=== PATIENT | female | born 1940 | race Caucasian/White ===

== ENCOUNTER 2019-04-24 02:27 | Day surgery (SDC) | payer MEDICARE, SELFPAY ==
[2019-04-23 11:27] VITALS: BMI 36.3
[2019-04-24 07:50] VITALS: BP 136/71; PULSE 44; RESP 14; TEMP 36.6; O2SAT 98
--- NOTE | 2019-04-24 09:06 | WPDCARDPROC ---
Cardiac Cath Procedure Note Date of procedure:: 04/24/19 Performing physician:: Johnathan Eaton MD Indication:: Symptoms of intermittent lightheadedness sensation of presyncope Brief clinical history:: This is a 78-year-old patient who has been seen by my partner Dr. Barnes and has been experiencing symptoms of lightheadedness and the desire is to rule out significant Javier arrhythmias Procedure Procedure performed:: Implantation of Medtronic LINQ loop recorder Sedation/Medication given:: No sedation Access site:: Left anterior chest wall Estimated blood loss:: Minimal Procedure note:: Patient was placed in the supine position the left anterior chest wall was palpated the 4th intercostal space was identified in the midclavicular line. Estiven was made there with a sterile pen and then the area was prepped and draped in a sterile fashion. 20 cc of 1% lidocaine was infiltrated in this region locally and following this the LINQ device was implanted using the supplied blade and insertion tool. The insertion puncture site will be dressed with Dermabond and a Band-Aid. Findings:: Unremarkable insertion of a Medtronic LINQ loop recorder Conclusion:: As above unremarkable insertion of Medtronic LINQ loop recorder
--- NOTE | 2019-04-24 09:10 | SUR.OPER ---
0859 Dr. Eaton at bedside placing loop implant-0.18 reading for implant.
== END 2019-04-24 09:29 | disposition home or self-care (01) ==
PROVIDERS: PCP Internal Medicine; Visit Provider Specialist
PROC: (CPT 33285; principal; 2019-04-24 08:30)
DX: R42 Dizziness and giddiness (principal); R94.31 Abnormal electrocardiogram [ECG] [EKG]; I10 Essential (primary) hypertension; E11.9 Type 2 diabetes mellitus without complications; G47.30 Sleep apnea, unspecified; Z86.711 Personal history of pulmonary embolism; Z87.891 Personal history of nicotine dependence; Z79.82 Long term (current) use of aspirin; Z79.84 Long term (current) use of oral hypoglycemic drugs
CPT/HCPCS: 33285; C1764

== ENCOUNTER 2019-08-11 00:16 | Outpatient (CLI) | payer MEDICARE, SELFPAY ==
[2019-08-11 18:58] LABS: SARS-CoV-2 RNA PCR Negative
== END 2019-08-11 00:17 | disposition home or self-care (01) ==
LOC: ANHCOVIDDT 00:16
PROVIDERS: Internal Medicine Cardiovascular Disease; PCP Internal Medicine; Visit Provider Otolaryngology
DX: Z01.818 Encounter for other preprocedural examination (principal); Z11.59 Encounter for screening for other viral diseases
CPT/HCPCS: 87635; C9803; U0003

== ENCOUNTER 2019-08-13 05:34 | Day surgery (SDC) | payer MEDICARE, SELFPAY ==
[2019-08-12 08:56] VITALS: BMI 38.1
[2019-08-13] VITALS (9 sets, daily range): BP systolic 114–150; BP diastolic 59–87; PULSE 57–75; RESP 14–16; TEMP 36.5–36.6; O2SAT 91–97; BMI 38.1
--- NOTE | 2019-08-13 08:20 | SUR.PREOP ---
ARRIVES AMBULATORY TO [facility] 5 FROM OP SURGERY REGISTRATION FOR SCHEDULED C W/ DR. ANSARI. DENIES CP OR SOB ON ARRIVAL. BRISK, STEADY GAIT. ORIENTED TO ROOM, PLAN OF CARE, PROCEDURE. QUESTIONS ANSWERED. VOICED UNDERSTANDING. VS OBTAINED, IV STARTED, LABS SENT, CONSENT SIGNED, SKIN PREPPED, AND PULSES MARKED. STATES HAS TAKEN PREDNISONE 50MG PRE MED DOSES ORDERED FOR CONTRAST MEDIA ALLERGY AT 2100 08/11, AND 0315 08/12. HAS BROUGHT FINAL DOSE OF PREDNISONE 50MG AND BENADRYL WITH HER THIS AM TO TAKE. VOICES NO C/O AT THIS TIME. WILL CONTINUE TO MONITOR.
[2019-08-13 08:40] LABS: Basophils Percent Auto 0.3 % (0.2-1.2); Hematocrit 42.9 % (37.0-47.0); Hemoglobin 14.3 g/dL (12.0-15.0); Immature Granulocyte Absolute 0.05 K/mm3 (0.00-0.031); Immature Granulocyte Percent A 0.6 % (0-0.5); Lymphocytes Absolute Auto 0.87 K/mm3 (0.9-3.2); Lymphocytes Percent Auto 11.1 % (18.3-44.2); Mean Corpuscular HGB Conc 33.3 g/dl (32-36); Mean Corpuscular Hemoglobin 32.1 pg (26-34); Mean Corpuscular Volume 96.2 fl (80-100); Mean Platelet Volume 9.9 fl (7.4-10.4); Monocytes Absolute Auto 0.1 K/mm3 (0.1-0.6); Neutrophils Absolute Auto 6.8 K/mm3 (1.3-6.7); Platelet Count Result 215 k/mm3 (150-375); Red Blood Count 4.46 M/mm3 (4.2-5.4); Red Cell Distribution Width 13.7 % (11.5-14.5); White Blood Count 7.8 K/mm3 (4.5-10.0)
[2019-08-13 08:50] LABS: Prothrombin Time 13.3 Seconds (11.1-14.7)
[2019-08-13 08:51] LABS: Blood Urea Nitrogen 27 mg/dL (7-17); Calcium 9.8 mg/dL (8.4-10.2); Carbon Dioxide 21 mmol/L (22-30); Chloride 105 mmol/L (98-107); Estimated CRCL calculation 61 ml/min; Estimated Glomerular Filt Rate > 60; Glucose 199 mg/dL (65-105); Potassium 4.1 mmol/L (3.4-5.0); Sodium 134 mmol/L (137-145)
--- NOTE | 2019-08-13 08:55 | SUR.PREOP ---
TOOK FINAL DOSE OF PREDNISONE 50MG PO W/ DOSE OF BENADRYL BROUGHT FROM HOME AT THIS TIME W/ SIP OF WATER.
--- NOTE | 2019-08-13 09:50 | SUR.PREOP ---
DR. ANSARI HERE TO SEE PT. NOTIFIED OF CONTRAST MEDIA ALLERGY AND THAT PT. HAS BEEN PREMEDICATED WITH PREDNISONE WITH FINAL DOSE OF PREDNISONE AND BENADRYL PO AT 0855.
--- NOTE | 2019-08-13 10:22 | WPDHPUPDATE1 ---
History and Physical Update Update Date/Time: 08/13/19 10:22 History and Physical has been reviewed, including an updated exam of the patient. There are NO changes in the patient's condition. Risks, benefits, and alternatives have been discussed and questions answered. Patient agrees to proceed with procedure.
--- NOTE | 2019-08-13 10:22 | WPDMODSED ---
Moderate Sedation Note-Pt Data Patient Data Allergies Allergy/AdvReac Type Severity Reaction Status Date / Time Penicillins Allergy Unknown Unknown Verified 08/12/19 09:06 rosuvastatin Allergy Unknown Muscle pain Verified 08/12/19 09:06 tetracycline Allergy Unknown Unknown Verified 08/12/19 09:06 Contrast Media Allergy Unknown ITCHING Uncoded 08/13/19 09:17 AND HIVES Home Medications Medication Instructions Recorded Confirmed Type metformin 500 mg tablet 1,000 mg PO BID #360 tablet 02/09/19 08/13/19 Rx aspirin 81 mg tablet,delayed 81 mg PO DAILY 03/11/19 08/13/19 History release cholecalciferol (vitamin D3) 50 2,000 unit PO DAILY 03/11/19 08/13/19 History mcg (2,000 unit) tablet citalopram 10 mg tablet 10 mg PO DAILY 03/11/19 08/13/19 History fluticasone propionate 50 2 spray NASAL PRN 03/11/19 08/13/19 History mcg/actuation nasal spray,suspension omeprazole magnesium 20 mg 20 mg PO DAILY 03/11/19 08/13/19 History tablet,delayed release vit C 250 mg-E 200 unit-zinc 40 1 tablet PO BID 03/11/19 08/13/19 History mg-copper 1 ge-ddnfsz-onnmoj capsule valsartan 320 1 tablet PO DAILY #90 tablet 03/13/19 08/13/19 Rx mg-hydrochlorothiazide 12.5 mg tablet timolol maleate 1 drp OPHTHALMIC (EYE) QAM 04/24/19 08/13/19 History glimepiride 1 mg tablet 1 mg PO QAM #90 tablet 06/16/19 08/13/19 Rx levothyroxine 75 mcg tablet 75 mcg PO DAILY #90 tablet 06/18/19 08/13/19 Rx Current Medications: Active Medications Sodium Chloride (Normal Saline Iv) 500 mls @ 100 mls/hr IV CONT .Q5H JOCY Sedation/Anesthesia: No previous sedation/anesthesia problems (including family history). [facility] Past Medical History Medical History History of basal cell carcinoma (BCC) Family History Family History (Updated 03/07/17 @ 14:34 by DOCTOR UNKNOWN) Father Family history of malignant neoplasm, Onset Age: 82 Family history of blood dyscrasia Sibling Family history of lung cancer, Onset Age: 67 Depression Family history of glaucoma Family history of alcoholism Mother Family history of malignant neoplasm of uterus, Onset Age: 70 Depression Other Cerebrovascular accident Diabetes mellitus Hypertension Social History Social History Smoking status: Current every day smoker Smoking end date: 03/04/88 Alcohol intake: never Gender identity (if verbalized by the patient): Female Mod Sed Physical Exam Physical Exam Pre Procedural Exam: Normal: Appearance, Eyes, Ears, Nose, Neck, Throat, Airway, Lungs, Heart Size, Heart Rate, Heart Rhythm, Neuro Exam, Abdomen, Liver, Kidneys, Spleen, Breasts, Genitalia, Extremities and Skin Hours since solid foods: 8 Hours since liquid intake: 8 Internal Medicine - PN: Obj Da Vital Signs Vital Signs: Vital Signs - 24 hr 08/13/19 08:33 Temperature 36.6 C Pulse Rate 61 Respiratory Rate 14 Blood Pressure 147/87 H Pulse Oximetry 97 Meds/Results Medications: Active Medications Generic Name Dose Route Start Last Admin Trade Name Freq PRN Reason Stop Dose Admin Sodium Chloride 500 mls @ 100 mls/hr 08/13/19 06:05 Normal Saline Iv IV CONT .Q5H JOCY Labs CBC & Chem 7: 08/13/19 08:34 08/13/19 08:34 Labs: Laboratory Results - last 24 hr 08/13/19 08/13/19 08/13/19 08:34 08:34 08:34 WBC 7.8 RBC 4.46 Hgb 14.3 Hct 42.9 MCV 96.2 MCH 32.1 MCHC 33.3 RDW 13.7 Plt Count 215 MPV 9.9 Immature Gran % (Auto) 0.6 H Neut % (Auto) 87.0 H Lymph % (Auto) 11.1 L [place] % (Auto) 1.0 L Eos % (Auto) 0.0 Baso % (Auto) 0.3 Lymph # (Auto) 0.87 L [place] # (Auto) 0.1 Eos # (Auto) 0.0 Baso # (Auto) 0.0 Abs Immat Gran (auto) 0.05 H Absolute Neuts (auto) 6.8 H Absolute Nucleated RBC 0.0 Nucleated RBC % 0.0
--- NOTE | 2019-08-13 10:23 | P.PCNCC_ITS ---
Cardiac Cath Procedure Note Date of procedure:: 08/13/19 Performing physician:: Juan iL MD date of service 08/13/2019 Indication:: abnormal stress test Brief clinical history:: this is a 79-year-old female with past history of diabetes, hypertension, obesity who was having episodes of presyncope. Underwent stress exercise testing with EKG being positive but the echo cardiogram portion negative for ischemia. she was brought into filling station laborer to define coronary anatomy. Procedure Procedure performed:: 1-Moderate sedation that started at 10:25 am and ended at 10:54 am using mg of Versed and mg fentanyl. The registered nurse was naseem Nagy 2-Selective left and right coronary angiogram. 3-Left heart catheterization with measurement of LVEDP and measurement of gradient across aortic valve. 4-Right common femoral arterial angiogram. 5-Deployment of 6 Spanish Angio-Seal. Sedation/Medication given:: Moderate sedation. Access site:: Right common femoral artery. Estimated blood loss:: 10cc Procedure note:: After informed consent patient was brought in to filling station laborer with the was draped and prepped in usual manner. Moderate sedation was given and the right groin was infiltrated using 1% lidocaine. Five Spanish sheath was obtained using micropuncture needle and the modified Seldinger technique. Selective left coronary angiogram was done using JL4 catheter with the tip of the catheter placed in the left main coronary artery. Selective right coronary angiogram was done using JR4 catheter with the tip of the catheter placed to the right coronary artery. After that 5 Spanish pigtail catheter was advanced across the aortic valve into the left ventricle with measurement of LVEDP and measurement of gradient across aortic valve. Right common femoral arterial angiogram was done. Findings:: 1- left coronary artery is a large artery that divides into large LAD, large circumflex arteryAnd a large ramus intermedius. Left main is free of disease. 2- left anterior descending artery is a large artery that runs and wraps around the apex. has diffuse minimal irregularities proximally and the mid segment and at the septal branch there is a focal 30%. in the mid segment gives rise to a medium-sized diagonal branch that looks unremarkable. 3- left circumflex artery is a large artery And codominant with diffuse minimal irregularities. After the OM branch there is a focal stenosis of about 30%. In the mid segment gives ostial large OM1 branch that looks unremarkable. Left PDA is relatively small with no significant stenosis. 4- ramus intermedius is a large artery and has ostial and proximal 20 -30% stenosis and there is diffuse minimal irregularities. 4- right coronary artery is a Large artery and codominant and has minimal calcification in the proximal mid segment and there is diffuse 20-30% stenosis in the mid segment. 5- LVEDP was 10 mm Hg and no gradient across aortic valve. 6- opening arterial pressure was 140/80 and closing pressure was 128/70. 7- right femoral artery angiogram shows no significant disease in the right common femoral artery. Conclusion:: - minimal nonocclusive CAD. - false-positive stress test. Assessment and Plan Additional Plan continue risk factor modification for CAD.
--- NOTE | 2019-08-13 11:07 | SUR.PHASEII ---
START PHASE II RECOVERY. RETURNS TO LABEL REMOVER 5 VIA STRETCHER S/P [facility] W/ DR. ANSARI. TRANSFERRED TO BED WITHOUT DIFFICULTY AND PLACED ON MONITORING EQUIPMENT. FULLY AWAKE AND ALERT. DENIES PAIN OR SOB. IVF'S RUNNING ORDERED. ANGIOSEAL CLOSURE TO R.FA PUNCTURE SITE. SITE SOFT, NONTENDER, NO BLEEDING OR HEMATOMA NOTED. GUAZE AND TEGADERM DRESSING C/D/I TO SITE. R. PEDAL PULSE 2+; COLOR, MOVEMENT AND SENSATION WNL TO R. FOOT. BEDREST X2 HOURS UNTIL 1300. REVIEWED BEDREST ACTIVITY RESTRICTIONS W/ PT. VOICED UNDERSTANDING. VSS. WILL CONTINUE TO MONITOR.
--- NOTE | 2019-08-13 13:10 | SUR.PHASEII ---
2 HOURS BEDREST COMPLETE AT 1300. R. GROIN SITE AND R. PEDAL PULSE WITHOUT CHANGE. SAT BEDSIDE TO DANGLE FEET BEFORE EASILY WALKING TO BATHROOM TO VOID. STEADY GAIT. RETURNED TO RECLINER CHAIR AT BEDSIDE. R. GROIN SITE REMAINS SOFT, NONTENDER, NO BLEEDING OR HEMATOMA; DRESSING C/D/I AFTER ACTIVITY. VSS. VOICES NO C/O. LUNCH TRAY SERVED.
--- NOTE | 2019-08-13 14:20 | SUR.PHASEII ---
R. GROIN SITE UNCHANGED. IV SITE DISCONTINUED INTACT AND DRESSED BY VIGNESH Barker RN. KEL WELL. DRESSING FOR DISCHARGE HOME.
--- NOTE | 2019-08-13 14:35 | SUR.PHASEII ---
REVIEWED ALL DISCHARGE CARE INSTRUCTIONS W/ PT. QUESTIONS ANSWERED. VOICED UNDERSTANDING OF ALL INSTRUCTIONS. DISCHARGE PACKET GIVEN. R. GROIN SITE REMAINS UNCHANGED AND R. PEDAL PULSE REMAINS 2+.
--- NOTE | 2019-08-13 14:37 | SUR.PHASEII ---
END PHASE II RECOVERY. DISCHARGED HOME, OUT VIA WC TO FRIEND'S WAITING CAR WITH ALL PERSONAL BELONGINS AND DISCHARGE PACKET. VOICES NO C/O; NO DISTRESS NOTED.
== END 2019-08-13 14:37 | disposition home or self-care (01) ==
PROVIDERS: PCP Internal Medicine; Visit Provider Internal Medicine Cardiovascular Disease
PROC: 4A023N7 Measurement of Cardiac Sampling and Pressure, Left Heart, Percutaneous Approach (ICD-10-PCS; CPT 93452; principal; 2019-08-13 09:45)
DX: I25.10 Atherosclerotic heart disease of native coronary artery without angina pectoris (principal); I10 Essential (primary) hypertension; E11.9 Type 2 diabetes mellitus without complications; Z79.84 Long term (current) use of oral hypoglycemic drugs; E66.9 Obesity, unspecified; Z68.38 Body mass index [BMI] 38.0-38.9, adult; G47.33 Obstructive sleep apnea (adult) (pediatric); E03.9 Hypothyroidism, unspecified; Z87.891 Personal history of nicotine dependence; Z86.711 Personal history of pulmonary embolism; Z85.828 Personal history of other malignant neoplasm of skin; Z88.1 Allergy status to other antibiotic agents; Z91.041 Radiographic dye allergy status
CPT/HCPCS: 36415; 80048; 85025; 85610; 87635; 93458; C1760; C1887; C1894; C9803; G0269; J1644; J2250; J3010; J7040; U0003

== ENCOUNTER 2019-09-11 11:40 | Outpatient (CLI) | payer MEDICARE, SELFPAY ==
[2019-09-11 12:34] LABS: Cholesterol 148 mg/dL (0-200); HDL Direct 42 mg/dL; Triglycerides 262 mg/dL (<150)
[2019-09-11 12:38] LABS: Hemoglobin A1C 6.7 % (<5.7)
[2019-09-11 12:45] LABS: LDL Cholesterol Direct 77 mg/dL
[2019-09-11 12:59] LABS: Microalbumin Urine Random 7.3 mg/L (0-16.7)
== END 2019-09-11 11:41 | disposition home or self-care (01) ==
PROVIDERS: PCP Internal Medicine; Visit Provider Internal Medicine
DX: E78.2 Mixed hyperlipidemia (principal); E11.9 Type 2 diabetes mellitus without complications
CPT/HCPCS: 36415; 80061; 82043; 83036

== ENCOUNTER 2019-10-26 00:15 | Outpatient (CLI) | payer MEDICARE, SELFPAY ==
[2019-10-26 19:31] LABS: SARS-CoV-2 RNA PCR Negative
== END 2019-10-26 00:16 | disposition home or self-care (01) ==
LOC: ANHCOVIDDT 00:15
PROVIDERS: PCP Internal Medicine; Visit Provider Internal Medicine Cardiovascular Disease
DX: Z01.812 Encounter for preprocedural laboratory examination (principal); Z20.828 Contact with and (suspected) exposure to other viral communicable diseases
CPT/HCPCS: 87635; C9803; U0003

== ENCOUNTER 2019-10-28 01:23 | Day surgery (SDC) | payer MEDICARE, SELFPAY ==
[2019-10-27 11:22] VITALS: BMI 35.4
[2019-10-28] VITALS (14 sets, daily range): BP systolic 82–121; BP diastolic 52–83; PULSE 67–96; RESP 12–19; TEMP 36.3–36.7; O2SAT 94–100; BMI 36.6
--- NOTE | ~2019-10-28 | XR_ITS ---
EXAMINATION: XR chest 1V portable EXAM DATE: 10/28/2019 11:29 INDICATION: Pacemaker insertion. TECHNIQUE: Portable AP frontal chest x-ray was obtained. Comparison is made to prior examination from 01/30/2016. FINDINGS: There is a dual lead pacemaker/AICD seen with leads projecting over the expected locations of the right atrial appendage and right ventricle. Right upper lobe granuloma. The lungs are otherwis e clear. There are no pleural effusions. The cardiomediastinal silhouette is within normal limits. There is no pneumothorax suspected. There are mild bony degenerative changes. IMPRESSION: No acute cardiopulmonary findings. Reviewed, dictated and finalized at location A.
--- NOTE | ~2019-10-28 | XR_ITS ---
EXAMINATION: XR chest 2V DATE: 10/29/2019 08:28 INDICATION: Pacer placement. TECHNIQUE: Frontal and lateral views of the chest were obtained. COMPARISON: Chest single view 10/28/2019 FINDINGS: Calcified bilateral lung nodules are consistent with old granulomatous disease. There is mi ld atelectasis at left lung base. No pleural effusion or pneumothorax. The heart size is normal. Ther e is a left chest wall pacer with leads in the right atrium and right ventricle. IMPRESSION: 1. Mild atelectasis at left lung base. Reviewed, dictated and finalized at location B.
--- NOTE | 2019-10-28 07:00 | ECG_ITS ---
Measurements Intervals [place] Rate: 70 P: 72 MD: 182 QRS: 1 QRSD: 100 T: 11 QT: 362 QTc: 392 Interpretive Statements SINUS RHYTHM LOW QRS VOLTAGE IN PRECORDIAL LEADS BASELINE ARTIFACT- III, AVF BORDERLINE ECG Electronically Signed On 10-28-2019 11:19:31 CDT by Jose Mendez D.O.
[2019-10-28 07:42] LABS: Basophils Percent Auto 0.3 % (0.2-1.2); Hemoglobin 15.5 g/dL (12.0-15.0); Immature Granulocyte Absolute 0.04 K/mm3 (0.00-0.031); Immature Granulocyte Percent A 0.5 % (0-0.5); Lymphocytes Absolute Auto 0.76 K/mm3 (0.9-3.2); Lymphocytes Percent Auto 10.4 % (18.3-44.2); Mean Corpuscular HGB Conc 34.4 g/dl (32-36); Mean Corpuscular Hemoglobin 32.5 pg (26-34); Mean Corpuscular Volume 94.3 fl (80-100); Mean Platelet Volume 9.8 fl (7.4-10.4); Monocytes Absolute Auto 0.1 K/mm3 (0.1-0.6); Monocytes Percent Auto 0.8 % (2.6-8.5); Neutrophils Absolute Auto 6.4 K/mm3 (1.3-6.7); Platelet Count Result 290 k/mm3 (150-375); Red Blood Count 4.77 M/mm3 (4.2-5.4); Red Cell Distribution Width 12.8 % (11.5-14.5); White Blood Count 7.3 K/mm3 (4.5-10.0)
[2019-10-28 07:58] LABS: INR 1.1; Prothrombin Time 14.1 Seconds (11.1-14.7)
[2019-10-28 08:05] LABS: Anion Gap 15 mmol/L (8-16); Blood Urea Nitrogen 19 mg/dL (7-17); Carbon Dioxide 19 mmol/L (22-30); Chloride 101 mmol/L (98-107); Estimated CRCL calculation 48 ml/min; Estimated Glomerular Filt Rate 60; Glucose 192 mg/dL (65-105); Sodium 135 mmol/L (137-145)
--- NOTE | 2019-10-28 08:28 | PM.IMHP ---
H&P: HPI History of Present Illness Date/Time: 10/28/19 08:28 Chief complaint: Bradycardia, DESTINY Narrative: Annie Montemayor is a 79 year old female complaining of brief episodes of lightheadedness, status post Medtronic LINQ loop recorder which shows evidence of sinus node dysfunction with intermittent bradycardia and pauses. She is here for permanent dual chamber pacemaker implant and loop recorder explant for symptomatic sinus node dysfunction. She is feeling well this morning with no fevers, has been NPO, has been prophylaxed for her IV contrast allergy, and is right handed. No history of clavicular fracture. Review of Systems Constitutional: Constitutional: Reports no additional constitutional complaints ENT: Denies epistaxis Cardiovascular: Cardiovascular: Denies chest pain, Denies pedal edema, Reports lightheadedness and Denies palpitations Respiratory: Respiratory: Denies dyspnea and Denies dyspnea on exertion Gastrointestinal: Gastrointestinal: Reports abdominal pain ( Recently was treated for diverticulitis which has resolved.) Genitourinary: Genitourinary: Denies hematuria Musculoskeletal: Musculoskeletal: Reports no additional musculoskeletal complaints Integumentary/Breasts: Skin/Breast: Denies rash Neurologic: Reports system reviewed and no additional complaints, except as documented Psychiatric: Psychiatric: Reports no additional psychiatric complaints [facility] Past Medical History Medical History (Updated 10/28/19 @ 08:33 by Princess Chapin MD) History of basal cell carcinoma (BCC) Family History Family History Father Family history of malignant neoplasm, Onset Age: 82 Family history of blood dyscrasia Sibling Family history of lung cancer, Onset Age: 67 Depression Family history of glaucoma Family history of alcoholism Mother Family history of malignant neoplasm of uterus, Onset Age: 70 Depression Other Cerebrovascular accident Diabetes mellitus Hypertension Social History Social History Social History: Danial May 26, 2019; Parkinson's. She is getting along better than expected. Smoking packs per day: 3 Smoking cigarettes per day: 60.0 Smoking status: Former smoker Tobacco type: cigarettes Smoking end date: 03/04/88 Alcohol intake: never Substance use: never Substance use type: does not use Last use: 1988 Living arrangements: alone Gender identity (if verbalized by the patient): Female Spiritual care concerns: No Meds Home Medications and Allergies Home Medications Medication Instructions Recorded Confirmed Type metformin 500 mg tablet 1,000 mg PO BID #360 tablet 02/09/19 10/27/19 Rx aspirin 81 mg tablet,delayed 81 mg PO DAILY 03/11/19 10/27/19 History release cholecalciferol (vitamin D3) 50 2,000 unit PO DAILY 03/11/19 10/27/19 History mcg (2,000 unit) tablet fluticasone propionate 50 2 spray NASAL PRN 03/11/19 10/27/19 History mcg/actuation nasal spray,suspension omeprazole magnesium 20 mg 20 mg PO DAILY 03/11/19 10/27/19 History tablet,delayed release vit C 250 mg-E 200 unit-zinc 40 1 tablet PO BID 03/11/19 10/27/19 History mg-copper 1 [id number]-fbajog capsule timolol maleate 1 drp OPHTHALMIC (EYE) QAM 04/24/19 10/27/19 History levothyroxine 75 mcg tablet 75 mcg PO DAILY #90 tablet 06/18/19 10/27/19 Rx glimepiride 1 mg tablet 1 mg PO QAM #90 tablet 09/08/19 10/27/19 Rx valsartan 320 1 tablet PO DAILY #90 tablet 09/08/19 10/27/19 Rx mg-hydrochlorothiazide 12.5 mg tablet semaglutide 7 mg tablet 7 mg PO DAILY 30 Days #30 tablet 10/05/19 10/27/19 Rx diphenhydramine HCl [Benadryl] 50 mg PO PRN 10/28/19 10/28/19 History prednisone 50 mg PO PRN 10/28/19 10/28/19 History Allergies Allergy/AdvReac Type Severity Reaction Status Date / Time Penicil
--- NOTE | 2019-10-28 08:34 | WPDMODSED ---
Moderate Sedation Note-Pt Data Patient Data Diagnosis: Symptomatic sinus node dysfunction Present Complaint: Lightheadedness, wooziness, intermittent bradycardia and pauses Procedure to be performed/Plan: conscious sedation venogram implantation of a permanent dual-chamber pacemaker Allergies Allergy/AdvReac Type Severity Reaction Status Date / Time Penicillins Allergy Mild Rash--- Verified 10/21/19 10:10 when she was a baby rosuvastatin Allergy Unknown Muscle pain Verified 09/15/19 11:06 tetracycline Allergy Unknown Unknown Verified 09/15/19 11:06 Contrast Media Allergy Unknown ITCHING Uncoded 09/15/19 11:06 AND HIVES Home Medications Medication Instructions Recorded Confirmed Type metformin 500 mg tablet 1,000 mg PO BID #360 tablet 02/09/19 10/27/19 Rx aspirin 81 mg tablet,delayed 81 mg PO DAILY 03/11/19 10/27/19 History release cholecalciferol (vitamin D3) 50 2,000 unit PO DAILY 03/11/19 10/27/19 History mcg (2,000 unit) tablet fluticasone propionate 50 2 spray NASAL PRN 03/11/19 10/27/19 History mcg/actuation nasal spray,suspension omeprazole magnesium 20 mg 20 mg PO DAILY 03/11/19 10/27/19 History tablet,delayed release vit C 250 mg-E 200 unit-zinc 40 1 tablet PO BID 03/11/19 10/27/19 History mg-copper 1 qk-pdzfwh-pvoqxk capsule timolol maleate 1 drp OPHTHALMIC (EYE) QAM 04/24/19 10/27/19 History levothyroxine 75 mcg tablet 75 mcg PO DAILY #90 tablet 06/18/19 10/27/19 Rx glimepiride 1 mg tablet 1 mg PO QAM #90 tablet 09/08/19 10/27/19 Rx valsartan 320 1 tablet PO DAILY #90 tablet 09/08/19 10/27/19 Rx mg-hydrochlorothiazide 12.5 mg tablet semaglutide 7 mg tablet 7 mg PO DAILY 30 Days #30 tablet 10/05/19 10/27/19 Rx diphenhydramine HCl [Benadryl] 50 mg PO PRN 10/28/19 10/28/19 History prednisone 50 mg PO PRN 10/28/19 10/28/19 History Current Medications: Active Medications Vancomycin HCl (Vancomycin 1,000 Mg/D5w 250 Ml) 1,000 mg in 250 mls @ 250 mls/hr IVPB ONCE ONE Stop: 10/28/19 09:29 Sedation/Anesthesia: No previous sedation/anesthesia problems (including family history). [facility] Family History Family History Father Family history of malignant neoplasm, Onset Age: 82 Family history of blood dyscrasia Sibling Family history of lung cancer, Onset Age: 67 Depression Family history of glaucoma Family history of alcoholism Mother Family history of malignant neoplasm of uterus, Onset Age: 70 Depression Other Cerebrovascular accident Diabetes mellitus Hypertension Social History Social History Social History: Danial May 26, 2019; Parkinson's. She is getting along better than expected. Smoking packs per day: 3 Smoking cigarettes per day: 60.0 Smoking status: Former smoker Tobacco type: cigarettes Smoking end date: 03/04/88 Alcohol intake: never Substance use: never Substance use type: does not use Last use: 1988 Living arrangements: alone Gender identity (if verbalized by the patient): Female Spiritual care concerns: No Mod Sed Physical Exam Physical Exam Pre Procedural Exam: Normal: Appearance, Eyes, Ears, Nose, Neck, Throat, Airway, Lungs, Heart Size, Heart Rate, Heart Rhythm, Neuro Exam, Abdomen, Genitalia, Extremities and Skin Hours since solid foods: 12 Hours since liquid intake: 12 Internal Medicine - PN: Obj Da Vital Signs Vital Signs: Vital Signs - 24 hr 10/28/19 07:38 Pulse Rate 96 Respiratory Rate 18 Blood Pressure 115/76 Pulse Oximetry 100 Meds/Results Medications: Active Medications Generic Name Dose Route Start Last Admin Trade Name Freq PRN Reason Stop Dose Admin Vancomycin HCl 1,000 mg in 250 mls @ 250 mls/hr 10/28/19 08:30 Vancomycin 1,000 Mg/D5w 250 Ml IVPB 10/28/19 09:29 ONCE ONE Labs CBC & Chem
--- NOTE | 2019-10-28 10:32 | P.OPB_ITS ---
Procedure Note - Brief Procedure Note - Brief Date of procedure: 10/28/19 Pre-op diagnosis: Bradycardia, DESTINY symptomatic sinus node dysfunction S/P Medtronic LINQ loop recorder Post-op diagnosis: other (S/P dual chamber pacemaker) Procedure performed: Conscious sedation Venogram Implantation of a permanent dual chamber Medtronic pacemaker Explant of LINQ Loop recorder Description of procedure: Uneventful dual pacemaker implant and Loop recorder explant Implants: Pulse Generator: Vyu [place] XT DR MRI Model # W1DR01, Serial # [id number] Right atrial lead: Medtronic Model# 96909-30, Serial # [id number] Right ventricular lead: Medtronic Model# 5076-52, SErial # [id number] Anesthesia: local (with conscious sedation) Surgeon: Princess Chapin MD Estimated blood loss (mL): 10 Drains: No Packing: No Pathology: none sent Complications: No immediate complications Condition: stable Disposition: observation
--- NOTE | 2019-10-28 10:39 | PM.PROC ---
Procedure Note - Detailed Date of procedure: 10/28/19 Pre-op diagnosis: Bradycardia, DESTINY Symptomatic sinus node dysfunction Status post Medtronic LINQ loop recorder Post-op diagnosis: other ( status post placement of a permanent dual-chamber Medtronic pacemaker) Procedure performed: Conscious sedation Venogram Implantation of a permanent dual chamber Medtronic pacemaker Explant of the Medtronic loop recorder Description of procedure: SITE: Left prepectoral area MEDICATIONS GIVEN IN PRESS CLIPPINGS CUTTER AND PASTER: vancomycin 1 g IV piggyback CONSCIOUS SEDATION: Assessment: The patient has no history of anesthesia problems. The patient's oropharynx is clear. The patient was deemed to be a good candidate for conscious sedation. The patient had continuous hemodynamic monitoring during the procedure. Start time: 904 Completion time: 1022 Total conscious sedation time: 78 minutes Medications: Versed 2 mg, fentanyl mcg IV push Trained observer: Efrem Apodaca RN Outcome: The patient tolerated the procedure well with no complications. PROCEDURE: After informed consent , the patient was brought to the mill laborer and the left prepectoral area was prepped and draped in usual fashion . The patient received preop antibiotic and conscious sedation . The left prepectoral area was anesthetized with lidocaine. A venogram was performed which showed the course of the left subclavian vein which was patent. Next a skin incision was made and carried down to the prepectoral fascia. Hemostasis was obtained using electrocautery . The pacer pocket was formed. The left subclavian vein was easily accessed with the micropuncture technique, and a J-tip guide wire was passed into the superior vena cava under fluoroscopic guidance . The needle was withdrawn . A 7 [place] safety sheath was passed over the wire and a 2nd wire was introduced into the IVC, the sheath withdrawn and replaced over a single wire , which was withdrawn. The right ventricular lead was passed into the inferior vena cava under fluoroscopic guidance . The lead was then prolapsed through the tricuspid valve and advanced into the right ventricular apex. When suitable sensing and pacing thresholds were obtained, it was screwed into place. No extra cardiac stimulation was obtained using 10 volts. The sheath was withdrawn. Next, another 7 Guatemalan safety sheath was passed over the 2nd wire, the wire withdrawn, and the right atrial lead was passed into the inferior vena cava under fluoroscopic guidance. Right atrial lead was then pulled back to the level of the right atrium and manipulated into the right atrial appendage . When suitable sensing and pacing thresholds were obtained , it was screwed into place . No extra cardiac stimulation was obtained using 10 volts. The sheath was withdrawn. Both leads were secured to the prepectoral fascia using 2-0 silk over their respective sleeves. The pocket was cleansed with antibiotic containing solution . The pulse generator was introduced into the operative field, and both leads were secured into the generator . A gentle tug showed the leads were securely fastened. The device was introduced into the pocket. a stay stitch was applied with 2 0 silk suture.The subcutaneous tissues were closed in a double layer fashion with interrupted sutures, using 2-0 Vicryl suture , and the skin was closed in a continuous fashion using 4-0 Vicryl suture in a continuous fashion. The area was cleansed, and an Aquacel dressing was applied . Next the area over the loop recorder was anesthetized with lidocaine, a small skin incision was made, the device grasped with a hemostat and delivered. The tract was irrigated with antibiotic-containing solution and the skin was closed with 4 0 Vicryl suture. A sterile dressing was applied. The patient tolerated the procedure well with no complications. PACEMAKER INFORMATION: Pulse Generator: M
--- NOTE | 2019-10-28 11:00 | ADMGEN ---
This patient, Annie Montemayor, was admitted to [facility]. Patient/family oriented to hospital policies and general routines including ID bracelet, bed and alarms, visiting hours, pain management, procedures, bathroom and other care routines, personal items, smoking policy, room service/diet, and visiting hours. Valuables list has been completed. Information on how to activate the Rapid Response Team has been discussed. Patient/Family are encouraged to report perceived risks to care and to ask questions if they do not understand what they are told or what they should do.
[2019-10-28] MEDS: OPTI-GEN TAB 1 TABLET PO (17:37)
[2019-10-28] MEDS: metFORMIN HCL 500 MG TABLET 1000 MG PO (17:38)
[2019-10-28 19:58] LABS: Glucose Point of Care 150 (65-105)
[2019-10-29] VITALS (7 sets, daily range): BP systolic 110–132; BP diastolic 60–75; PULSE 60–65; RESP 14–16; TEMP 36.3–36.7; O2SAT 95–98
[2019-10-29] MEDS: LEVOTHYROXINE SODIUM 75 MCG TABLET PO (05:49)
--- NOTE | 2019-10-29 08:05 | PC.NURSE ---
[employer] REP HERE TO EVALUATE PACEMAKER FUNCTION PO DAY 1. PT. UP TO BATHROOM WITHOUT DIFFICULTY. STEADY. DR. VINES HERE.
--- NOTE | 2019-10-29 08:25 | PC.NURSE ---
DOWN FOR 2 VIEW CXR VIA WC AT THIS TIME.
[2019-10-29] MEDS: CHOLECALCIFEROL 1,000 UNITS TABLET 2000 UNITS PO (10:03)
[2019-10-29] MEDS: ASPIRIN 81 MG ENTERIC TABLET PO (10:03)
[2019-10-29] MEDS: OPTI-GEN TAB 1 TABLET PO (10:04)
[2019-10-29] MEDS: metFORMIN HCL 500 MG TABLET 1000 MG PO (10:04)
[2019-10-29] MEDS: PANTOPRAZOLE 40 MG TABLET PO (10:05)
[2019-10-29] MEDS: hydroCHLOROthiazide 12.5 MG CAPSULE PO (10:06)
[2019-10-29] MEDS: VALSARTAN 160 MG TABLET 320 MG PO (10:06)
--- NOTE | 2019-10-29 13:50 | PC.NURSE ---
BANDAID OVER LOOP RECORDER REMOVAL SITE L. CHEST (JUST BELOW PPM AQUACELL DRESSING) COMING OFF. BANDAID CHANGED. SITE WELL APPROXIMATED. DRY. NO BLEEDING OR REDNESS NOTED.
--- NOTE | 2019-10-29 14:25 | PC.NURSE ---
DISCHARGED HOME, OUT VIA WC WITH ALL PERSONAL BELONGINGS AND DISCHARGE INSTRUCTIONS TO FRIEND'S WAITING CAR.
--- NOTE | 2019-11-20 16:55 | PM.DS ---
DS: Admitting Diagnosis Admitting Diagnosis Admitting Diagnosis: Bradycardia, sinus node dysfunction. DS: Discharge Diagnosis Discharge Diagnosis (1) Sinus node dysfunction: Code(s): I49.5 - Sick sinus syndrome Status: Acute (2) S/P placement of cardiac pacemaker: Code(s): Z95.0 - Presence of cardiac pacemaker Status: Acute DS: Summary Hospital Course Reason for hospitalization: Annie Montemayor is a 79 year old female complaining of brief episodes of lightheadedness, status post [employer] LINQ loop recorder which shows evidence of sinus node dysfunction with intermittent bradycardia and pauses. She is here for permanent dual chamber pacemaker implant and loop recorder explant for symptomatic sinus node dysfunction. Hospital Course: The patient was admitted 10/28/2019 and underwent uneventful placement of a [employer] dual chamber pacemaker and explant of the loop recorder. Her check up the showed good pacemaker funciton and no evidence of pneumothorax by CXR. She was given instructions about wound care and follow up and discharged 10/29/2019. She will follow up in our office in 1 week for an incision check. Time Spent with Patient Time attestation: Total time spent providing and/or coordinating discharge services: > 30 minutes. Exam Const: General: comfortable and no acute distress HENMT: Mouth: Yes moist mucous membranes Neck: Neck: supple Resp: Effort & Inspection: normal respiratory effort Auscultation: clear to auscultation bilaterally Cardio: Rate: regular rate Rhythm: regular rhythm GI: GI Palp: Yes Soft to palpation Skin: General skin exam: normal color Other: Pacemaker site w/o hematoma. Neuro: Motor exam (neuro): Normal motor muscle tone present throughout Extrem: General: pedal edema DS: Data Imaging Attestation: I personally reviewed and interpreted this imaging study as follows: My impression: CXR showed normal pacer lead placement and no PTX Discharge Plan Discharge Patient Disposition: Home, Self-Care Discharge Instructions: Follow up at [facility] to remove bandage and check pacemaker incision by nurse Brad at 10:30 a.m. Please arrive 15 minutes early for registration. --Keep the special Aquacel dressing on the incision until it is removed by [facility] nurse on your follow-up visit --Keep the dressing clean and dry; no showering above the waist, or swimming until it is removed next week --A small amount of tenderness, puffiness and bruising around the site is normal. Call if any significant pain, drainage, swelling, or redness around the site. --No lifting > 15 pound or exercise with the affected arm for four weeks. --Keep the affected arm below shoulder height for 4 weeks. --DO NOT TOUCH OR RUB THE INCISION. No lotions or ointments on the incision. --Change the Band-Aid over the loop recorder site daily starting Saturday. Patient Instructions: Pacemaker (DC) Stand Alone Forms: General Discharge Instructions Discharge Medications: Continued timolol maleate 0.25 % Drops 1 drp OPHTHALMIC (EYE) QAM RF: 0 metformin 500 mg tablet 1,000 mg PO BID Qty: 360 RF: 1 PreserVision AREDS-2 [id number] aa-[id number]-nl-mg capsule 1 tablet PO BID RF: 0 aspirin [Adult Low Dose Aspirin] 81 mg tablet,delayed release (DR/EC) 81 mg PO DAILY RF: 0 fluticasone propionate [Allergy Relief (fluticasone)] 50 mcg/actuation spray,suspension 2 spray NASAL PRN RF: 0 cholecalciferol (vitamin D3) 2,000 unit tablet 2,000 unit PO DAILY RF: 0 levothyroxine 75 mcg tablet 75 mcg PO DAILY Qty: 90 RF: 0 valsartan-hydrochlorothiazide 320-12.5 mg tablet 1 tablet PO DAILY Qty: 90 RF: 1 Discontinued diphenhydramine HCl [Benadryl] 25 mg Capsule 50 mg PO PRN RF: 0 prednisone 50 mg tablet 50 mg PO PRN RF: 0 No Action omeprazole 40 mg capsule,delayed release(DR/EC) 40 mg PO DAILY Qty: 90 RF: 1 Rybelsus 3 mg table
== END 2019-10-29 14:25 | disposition home or self-care (01) ==
LOC: ANHCATHLAB 07:10 → ANHCPC 11:42
PROVIDERS: PCP Internal Medicine; Visit Provider Internal Medicine Cardiovascular Disease
PROC: 0JH606Z Insertion of Pacemaker, Dual Chamber into Chest Subcutaneous Tissue and Fascia, Open Approach (ICD-10-PCS; CPT 33208; principal; 2019-10-28 08:30)
PROC: (CPT 33286; 2019-10-28 08:30)
DX: I49.5 Sick sinus syndrome (principal); I10 Essential (primary) hypertension; G47.33 Obstructive sleep apnea (adult) (pediatric)
CPT/HCPCS: 33208; 33286; 36415; 71045; 71046; 80048; 85025; 85610; 93005; A4565; A9270; C1779; C1785; C1894; J2250; J3010; J3370; J7040

== ENCOUNTER 2019-11-16 14:57 | Emergency (ER) | payer MEDICARE, SELFPAY ==
[2019-11-16] VITALS (8 sets, daily range): BP systolic 100–129; BP diastolic 59–89; PULSE 61–88; RESP 16–20; TEMP 36.6; O2SAT 95–98
--- NOTE | ~2019-11-16 | XR_ITS ---
EXAMINATION: XR chest 2V DATE: 11/16/2019 16:13 INDICATION: Midsternal chest pain. TECHNIQUE: Frontal and lateral views of the chest were obtained. COMPARISON: Chest 2 views 10/29/2019, CT abdomen and pelvis 10/07/2015 FINDINGS: Calcified bilateral lung nodules are consistent with old granulomatous disease. There is mi ld atelectasis at left lung base. No pleural effusion or pneumothorax. The heart size is normal. Ther e is a left chest wall pacer with leads in the right atrium and right ventricle. IMPRESSION: 1. Mild atelectasis at left lung base. Reviewed, dictated and finalized at location A.
--- NOTE | 2019-11-16 15:17 | ECG_ITS ---
Measurements Intervals [place] Rate: 73 P: 226 CT: 168 QRS: -2 QRSD: 101 T: 16 QT: 378 QTc: 417 Interpretive Statements ELECTRONIC ATRIAL PACEMAKER LOW QRS VOLTAGE IN PRECORDIAL LEADS BORDERLINE ST-T WAVE ABNORMALITY- INF/HIGH LAT LEADS BORDERLINE ECG Electronically Signed On 11-16-2019 15:36:14 CDT by Jose Mendez D.O.
[2019-11-16 15:46] LABS: Basophils Percent Auto 0.6 % (0.2-1.2); Eosinophils Absolute Auto 0.2 K/mm3 (0-0.3); Eosinophils Percent Auto 2.3 % (0-4.4); Hematocrit 41.5 % (37.0-47.0); Immature Granulocyte Absolute 0.03 K/mm3 (0.00-0.031); Immature Granulocyte Percent A 0.4 % (0-0.5); Lymphocytes Absolute Auto 2.26 K/mm3 (0.9-3.2); Lymphocytes Percent Auto 32.6 % (18.3-44.2); Mean Corpuscular HGB Conc 33.7 g/dl (32-36); Mean Corpuscular Hemoglobin 32.5 pg (26-34); Mean Corpuscular Volume 96.3 fl (80-100); Monocytes Absolute Auto 0.4 K/mm3 (0.1-0.6); Monocytes Percent Auto 6.2 % (2.6-8.5); Neutrophils Percent Auto 57.9 % (45.5-73.1); Platelet Count Result 221 k/mm3 (150-375); Red Blood Count 4.31 M/mm3 (4.2-5.4); Red Cell Distribution Width 13.1 % (11.5-14.5); White Blood Count 6.9 K/mm3 (4.5-10.0)
[2019-11-16 15:56] LABS: INR 1.1; Prothrombin Time 13.7 Seconds (11.1-14.7)
[2019-11-16 16:13] LABS: Troponin I < 0.012 ng/mL (0.000-0.034)
[2019-11-16 16:25] LABS: Anion Gap 10 mmol/L (8-16); Blood Urea Nitrogen 15 mg/dL (7-17); Calcium 9.8 mg/dL (8.4-10.2); Carbon Dioxide 22 mmol/L (22-30); Chloride 105 mmol/L (98-107); Estimated CRCL calculation 53 ml/min; Estimated Glomerular Filt Rate > 60; Glucose 188 mg/dL (65-105); Sodium 137 mmol/L (137-145)
[2019-11-16 17:16] LABS: Potassium 3.7 mmol/L (3.4-5.0)
[2019-11-16 19:15] LABS: Troponin I < 0.012 ng/mL (0.000-0.034)
--- NOTE | 2019-11-16 19:16 | ED.CHESTPAIN ---
HPI - Chest Pain General Chief Complaint: Chest Pain Stated Complaint: CP Time Seen by Provider: 11/16/19 19:01 Source: patient Mode of arrival: EMS Limitations: no limitations History of Present Illness HPI narrative: This is a 79 year old female that presents to the ER for substernal chest pain since this morning. Reports she started having right sided shoulder pain around 10 this morning. Reports this then radiated into her chest. Reports she has had pain in the substernal area since. Then pain is almost gone now, but it happens still when she gets up and walks around. Denies fever, cough, lower extremity edema, or shortness of breath. Related Data Home Medications Medication Instructions Recorded Confirmed aspirin 81 mg tablet,delayed 81 mg PO DAILY 03/11/19 10/27/19 release cholecalciferol (vitamin D3) 50 2,000 unit PO DAILY 03/11/19 10/27/19 mcg (2,000 unit) tablet fluticasone propionate 50 2 spray NASAL PRN 03/11/19 10/27/19 mcg/actuation nasal spray,suspension omeprazole magnesium 20 mg 20 mg PO DAILY 03/11/19 10/27/19 tablet,delayed release vit C 250 mg-E 200 unit-zinc 40 1 tablet PO BID 03/11/19 10/27/19 mg-copper 1 [id number] capsule timolol maleate 1 drp OPHTHALMIC (EYE) QAM 04/24/19 10/27/19 Allergies Allergy/AdvReac Type Severity Reaction Status Date / Time Penicillins Allergy Mild Rash--- Verified 10/21/19 10:10 when she was a baby rosuvastatin Allergy Unknown Muscle pain Verified 09/15/19 11:06 tetracycline Allergy Unknown Unknown Verified 09/15/19 11:06 Contrast Media Allergy Unknown ITCHING Uncoded 09/15/19 11:06 AND HIVES Review of Systems Review of Systems: Narrative: CONSTITUTIONAL: Denies fever CARDIOVASCULAR: Reports chest pain. Denies edema. RESPIRATORY: Denies cough or dyspnea. All systems reviewed & are unremarkable except as noted in HPI and below PMFSH Past Medical History Medical History (Updated 11/16/19 @ 21:00 by Ekaterina Camarena PA-C) Acquired hypothyroidism Chronic obstructive pulmonary disease Essential hypertension History of basal cell carcinoma (BCC) Major depressive disorder with single episode, in partial remission UNIQUE (obstructive sleep apnea) Sinus node dysfunction Type 2 diabetes mellitus without complication, without long-term current use of insulin Social History Social History Social History: Danial May 26, 2019; Parkinson's. She is getting along better than expected. Smoking packs per day: 3 Smoking cigarettes per day: 60.0 Smoking status: Never smoker Tobacco type: cigarettes Second hand tobacco smoke exposure: Yes Smoking end date: 03/04/88 Alcohol intake: never Substance use: never Substance use type: does not use Last use: 1988 Gender identity (if verbalized by the patient): Female Spiritual care concerns: No Exam Narrative: Exam Narrative: GENERAL: Well-appearing, well-nourished, and in no acute distress. HEAD: Normocephalic, atraumatic. EYES: EOMI. CHEST: Clear to auscultation. No respiratory distress. No wheezes rales or rhonchi HEART: Regular rate and rhythm. No murmur heard. Normal peripheral pulses. EXTREMITIES: Normal range of motion. No edema. SKIN: Warm, dry, no rash. NEURO: No focal deficits. Alert and oriented x3. PSYCH: Normal mood and affect Course Consultations Consultation #1: Spoke with Dr. Zaragoza about patient and work-up. Patient has an appointment to follow-up with cardiology on Saturday. Is felt stable for further outpatient evaluation. Date: 11/16/19 Time: 21:05 Vital Signs Vital signs: Vital Signs Temperature 97.8 F 11/16/19 15:02 Pulse Rate 88 11/16/19 15:02 Respiratory Rate 16 11/16/19 15:02 Blood Pressure 129/79 11/16/19 15:02 Pulse Oximetry 98 11/16/19 15:02 Temperature 97.8 F 11/16/19 15:02 Pulse Rate 63 11/16/19 20:34 Respiratory Rate 18
--- NOTE | 2019-11-16 20:41 | PC.NURSE ---
per Sherrill in lab re lumbar puncture- gram stain- Rare WBC, no organisms. Dr. Dusty bates.
== END 2019-11-16 21:21 | disposition home or self-care (01) ==
PROVIDERS: Emergency Provider Emergency Medicine; PCP Internal Medicine
DX: R07.9 Chest pain, unspecified (principal); E03.9 Hypothyroidism, unspecified; J44.9 Chronic obstructive pulmonary disease, unspecified; I10 Essential (primary) hypertension; G47.33 Obstructive sleep apnea (adult) (pediatric); E11.9 Type 2 diabetes mellitus without complications; Z79.4 Long term (current) use of insulin; Z85.828 Personal history of other malignant neoplasm of skin; Z79.82 Long term (current) use of aspirin; Z95.0 Presence of cardiac pacemaker
CPT/HCPCS: 36415; 71046; 80048; 84484; 85025; 85610; 85730; 93005; 99284

== ENCOUNTER 2019-12-15 00:30 | Outpatient (CLI) | payer MEDICARE, SELFPAY ==
[2019-12-15 19:00] LABS: SARS-CoV-2 RNA PCR Negative
== END 2019-12-15 00:31 | disposition home or self-care (01) ==
LOC: ANHCOVIDDT 00:30
PROVIDERS: PCP Internal Medicine; Visit Provider Internal Medicine Gastroenterology
DX: Z01.812 Encounter for preprocedural laboratory examination (principal); Z20.828 Contact with and (suspected) exposure to other viral communicable diseases
CPT/HCPCS: 87635; C9803; U0003

== ENCOUNTER 2019-12-17 00:14 | Day surgery (SDC) | payer MEDICARE, SELFPAY ==
[2019-12-09 13:31] VITALS: BMI 35.5
[2019-12-17] MEDS: LACTATED RINGERS 1,000 ML 150 ML IV CONT (08:06)
--- NOTE | 2019-12-17 08:08 | WPDANESEPPF ---
Anes - Initial Pre Proc Eval Procedure: Operation Date: 12/17/19 09:00 Proposed Procedures p Esophagogastroduodenoscopy & Screening Colonoscopy - Estiven Munoz MD Date/Time: 12/17/19 08:08 Surgeon: Estiven Munoz MD Pre Op Diagnosis: GERD, hx of colon polyps Patient Data Age: 79 Gender: F Height: 5 ft 3 in Weight: 91 kg Allergies Allergy/AdvReac Type Severity Reaction Status Date / Time Iodinated Contrast Media Allergy Severe Swelling Verified 12/17/19 07:50 of Lip/Tongue/Throat tetracycline Allergy Severe Swelling Verified 12/17/19 07:50 of Lip/Tongue/Throat rosuvastatin Allergy Intermediate Muscle pain Verified 12/17/19 07:50 Penicillins Allergy Mild Rash--- Verified 12/17/19 07:50 when she was a baby Contrast Media Allergy Severe Swelling Uncoded 12/17/19 07:50 of Lip/Tongue/Throat Home Medications Medication Instructions Recorded Confirmed Type aspirin 81 mg tablet,delayed 81 mg PO DAILY 03/11/19 12/09/19 History release cholecalciferol (vitamin D3) 50 2,000 unit PO DAILY 03/11/19 12/09/19 History mcg (2,000 unit) tablet fluticasone propionate 50 2 spray NASAL PRN 03/11/19 12/09/19 History mcg/actuation nasal spray,suspension vit C 250 mg-E 200 unit-zinc 40 2 tablet PO DAILY 03/11/19 12/09/19 History mg-copper 1 [id number] capsule timolol maleate 1 drp OPHTHALMIC (EYE) QAM 04/24/19 12/09/19 History valsartan 320 1 tablet PO DAILY #90 tablet 09/08/19 12/09/19 Rx mg-hydrochlorothiazide 12.5 mg tablet omeprazole 40 mg capsule,delayed 40 mg PO DAILY #90 cap 11/17/19 12/09/19 Rx release semaglutide 3 mg tablet 3 mg PO DAILY 30 Days #30 tablet 11/17/19 12/09/19 Rx metformin 500 mg tablet 1,000 mg PO BID #360 tablet 11/23/19 12/09/19 Rx eszopiclone 2 mg tablet 2 mg PO ONCE #1 tablet 11/30/19 12/09/19 Rx levothyroxine 75 mcg tablet 75 mcg PO DAILY #90 tablet 12/07/19 12/09/19 Rx Patient hx anesthesia problems: none Family hx anesthesia problems: none PMFSH Past Medical History Medical History Acquired hypothyroidism Chronic obstructive pulmonary disease Essential hypertension History of basal cell carcinoma (BCC) Major depressive disorder with single episode, in partial remission UNIQUE (obstructive sleep apnea) Sinus node dysfunction Type 2 diabetes mellitus without complication, without long-term current use of insulin Surgical History Surgical History S/P placement of cardiac pacemaker Family History Family History Father Family history of malignant neoplasm, Onset Age: 82 Family history of blood dyscrasia Sibling Family history of lung cancer, Onset Age: 67 Depression Family history of glaucoma Family history of alcoholism Mother Family history of malignant neoplasm of uterus, Onset Age: 70 Depression Other Cerebrovascular accident Diabetes mellitus Hypertension Social History Social History Social History: Danial May 26, 2019; Parkinson's. She is getting along better than expected. Smoking packs per day: 3 Smoking cigarettes per day: 60.0 Years smoked: 30 Smoking pack-years: 90.00 Smoking status: Former smoker Tobacco type: cigarettes Second hand tobacco smoke exposure: Yes Smoking end date: 03/04/88 Alcohol intake: never Substance use: never Substance use type: does not use Last use: 1988 Living arrangements: alone Gender identity (if verbalized by the patient): Female Spiritual care concerns: No Anes - Eval Final PreProcedure Day of Procedure 12/17/19 08:08 Patient weight: obese Heart: regular rate and rhythm Lungs: clear to auscultation Airway: Mallampati scale class II Neurological:
[2019-12-17 08:11] VITALS: BP 147/94; PULSE 95; RESP 17; TEMP 37; O2SAT 95; BMI 35.8
[2019-12-17 08:30] LABS: Glucose Point of Care 128 (65-105)
--- NOTE | 2019-12-17 08:32 | WPDGICN ---
Assessment and Plan Assessment and plan (1) Atypical chest pain: Code(s): R07.89 - Other chest pain Status: Acute Assessment and Plan: Patient with atypical chest pain. IA was excluded in the ER. Plan is to evaluate with EGD. Suspicion is that she may have underlying acid reflux. Will continue Prilosec 40 mg p.o. daily for now. (2) Dysphagia: Code(s): R13.10 - Dysphagia, unspecified Status: Acute Assessment and Plan: Patient complains of difficulty swallowing . plan is to evaluate this with EGD today. (3) History of colon polyps: Code(s): Z86.010 - Personal history of colonic polyps Status: Acute Assessment and Plan: Patient has a history of colon polyps. It has been 5 years since last colonoscopy. Plan is to proceed with colonoscopy today and at intervals in the future. GI Consult Note Consult date/time: 12/17/19 08:32 HPI: Annie Montemayor is a 79 year old female Seen in evaluation at the request of Dr. Mackey. Patient has a history of atherosclerotic heart disease. Recently has pacemaker placed. She experience rather significant chest pain prompting visit to the emergency room. Acute IA was excluded period is felt she may have underlying acid reflux. Patient does no difficulty swallowing. Sometimes food will catch in the mid substernal portion of the chest. She denies abdominal pain. She has had no bleeding. Patient does take Prilosec and has done so for many years. Dose was recently increased from 20-40 mg per day. Past medical history is significant for colon polyps. Has been 5 years since last colonoscopy. Review of Systems Review of Systems: All systems reviewed & are unremarkable except as noted in HPI and below PMFSH Past Medical History Medical History Acquired hypothyroidism Chronic obstructive pulmonary disease Essential hypertension History of basal cell carcinoma (BCC) Major depressive disorder with single episode, in partial remission UNIQUE (obstructive sleep apnea) Sinus node dysfunction Type 2 diabetes mellitus without complication, without long-term current use of insulin Surgical History Surgical History S/P placement of cardiac pacemaker Family History Family History Father Family history of malignant neoplasm, Onset Age: 82 Family history of blood dyscrasia Sibling Family history of lung cancer, Onset Age: 67 Depression Family history of glaucoma Family history of alcoholism Mother Family history of malignant neoplasm of uterus, Onset Age: 70 Depression Other Cerebrovascular accident Diabetes mellitus Hypertension Social History Social History Social History: Danial May 26, 2019; Parkinson's. She is getting along better than expected. Smoking packs per day: 3 Smoking cigarettes per day: 60.0 Years smoked: 30 Smoking pack-years: 90.00 Smoking status: Former smoker Tobacco type: cigarettes Second hand tobacco smoke exposure: Yes Smoking end date: 03/04/88 Alcohol intake: never Substance use: never Substance use type: does not use Last use: 1988 Living arrangements: alone Gender identity (if verbalized by the patient): Female Spiritual care concerns: No Meds Home Medications and Allergies Home Medications Medication Instructions Recorded Confirmed Type aspirin 81 mg tablet,delayed 81 mg PO DAILY 03/11/19 12/17/19 History release cholecalciferol (vitamin D3) 50 2,000 unit PO DAILY 03/11/19 12/17/19 History mcg (2,000 unit) tablet fluticasone propionate 50 2 spray NASAL PRN 03/11/19 12/17/19 History mcg/actuation nasal spray,suspension vit C 250 mg-E 200 unit-zinc 40 2 tablet PO DAILY 0
[2019-12-17] MEDS: BENZOCAINE (*SP) 60 ML SPRAY CAN (HURRICAINE) 1 SPRAY MUCOUS MEM (08:47)
[2019-12-17] MEDS: SIMETHICONE ORAL SUSPENSION 20 MG/0.3 ML 30 ML BOTTLE 0.6 ML IRRIGATION (08:51)
[2019-12-17 09:21] VITALS: BP 106/65; PULSE 69; RESP 20; O2SAT 98
[2019-12-17 09:31] VITALS: BP 108/65; PULSE 65; RESP 19; O2SAT 98
[2019-12-17 09:41] VITALS: BP 124/72; PULSE 60; RESP 14; O2SAT 100
== END 2019-12-17 10:01 | disposition home or self-care (01) ==
PROVIDERS: PCP Internal Medicine; Visit Provider Internal Medicine Gastroenterology
PROC: 0DJ08ZZ Inspection of Upper Intestinal Tract, Via Natural or Artificial Opening Endoscopic (ICD-10-PCS; CPT 43235; principal; 2019-12-17 09:00)
DX: Z12.11 Encounter for screening for malignant neoplasm of colon (principal); D12.3 Benign neoplasm of transverse colon; K57.30 Diverticulosis of large intestine without perforation or abscess without bleeding; K64.8 Other hemorrhoids; K21.9 Gastro-esophageal reflux disease without esophagitis; R07.89 Other chest pain; R13.10 Dysphagia, unspecified; I10 Essential (primary) hypertension; E11.9 Type 2 diabetes mellitus without complications; E03.9 Hypothyroidism, unspecified; J44.9 Chronic obstructive pulmonary disease, unspecified; G47.33 Obstructive sleep apnea (adult) (pediatric); F32.4 Major depressive disorder, single episode, in partial remission; Z95.0 Presence of cardiac pacemaker; Z87.891 Personal history of nicotine dependence; Z79.82 Long term (current) use of aspirin; Z79.84 Long term (current) use of oral hypoglycemic drugs
CPT/HCPCS: 45385; 43239; 87081; 88305; J2704; J7120

== ENCOUNTER 2019-12-22 09:16 | Outpatient (CLI) | payer MEDICARE, SELFPAY ==
[2019-12-22 10:00] LABS: Creatinine Urine 180.2 mg/dL
[2019-12-22 10:05] LABS: Microalbumin Urine Random 21.6 mg/L (0-16.7)
== END 2019-12-22 09:17 | disposition home or self-care (01) ==
PROVIDERS: PCP Internal Medicine; Visit Provider Internal Medicine
DX: E11.9 Type 2 diabetes mellitus without complications (principal)
CPT/HCPCS: 36415; 82043; 83036

== ENCOUNTER 2020-01-02 01:46 | Outpatient (CLI) | payer MEDICARE, SELFPAY ==
[2020-01-02 22:13] LABS: SARS-CoV-2 RNA PCR Negative
== END 2020-01-02 01:47 | disposition home or self-care (01) ==
LOC: ANHCOVIDDT 01:46
PROVIDERS: PCP Internal Medicine; Visit Provider Internal Medicine Critical Care Medicine
DX: Z01.812 Encounter for preprocedural laboratory examination (principal); Z20.828 Contact with and (suspected) exposure to other viral communicable diseases
CPT/HCPCS: 87635; C9803; U0003

== ENCOUNTER 2020-01-05 08:02 | Outpatient (CLI) | payer MEDICARE, SELFPAY ==
--- NOTE | 2020-02-05 12:33 | WPDSLEEPSTUD ---
Sleep Study Date of Study: 01/05/20 Ordering Provider: Tarun Locke APRN Interpreting Physician: Crissy Mosqueda MD Sleep Study Type: CPAP Titration Height: 1.6 m Weight: 90.265 kg Body Mass Index: 35.2 Neck Circumference: 40.64 cm [place]: 6 Reason for Sleep Study UNIQUE; increased symptoms and AHI Sleep History Annie Montemayor is an 79 year old female with known UNIQUE, has been on CPAP, and has increased events. She is having a CPAP titration due to a Medicare request and download with good compliance however her AHI is 11 which is too high. She has also used oxygen at night. Her overnight oximetry on CPAP November 19, 2019 showed a need for 2 liters/minute with CPAP. She would like to get the oxygen out of her home if she does not have to have it. She frequently snores, occasionally has trouble sleeping if she has a cold. She does not gasp for breath at night or have breathing problems at night reported to her by others. She frequently sweats excessively at night. She does not notice her heart pounding or beating irregularly at night. She rarely falls asleep during the day. She does not fall asleep involuntarily, while driving the car, during physical effort. She does not have loss of muscle tone with strong emotion. She does not have daytime dysfunction due to of sleepiness. She does not feel paralyzed on waking or falling asleep. She does not have vivid dreamlike scenes upon awakening or falling asleep. She is not afraid to go to sleep. She denies having nightmares. She rarely remembers her dreams and rarely has racing thoughts. She occasionally feels sad or depressed. She rarely has anxiety. She rarely has muscular tension. She does not notice parts of her body jerking. She does not kick at night or have crawling and aching feelings in her legs at night. She does not grind her teeth at night. She rarely is bothered by pain during the day. She is not awakened by pain at night. She rarely wakes up feeling stiff in the morning. She does not have sore or achy muscles in the morning nor does she have pain in the neck or spine. She does not have morning headaches. Normal bedtime is between 10:00 and 10:30 p.m. falling asleep within 15-30 minutes; wakes 1-2 times to urinate. She stays awake for 10 minutes during these episodes. She wakes in the morning at 6:00 a.m. feeling refreshed. Weekend schedule is the same. She estimates 7-8 hours of sleep at night. She sometimes takes a nap. A short nap may be refreshing. She feels better in the am than other times of the day. Habits: Quit tobacco 30 years ago. One cup of coffee a day. No alcohol. [facility] Past Medical History Medical History (Updated 02/05/20 @ 13:51 by Crissy Mosqueda MD) Acquired hypothyroidism Chronic obstructive pulmonary disease Essential hypertension History of basal cell carcinoma (BCC) Major depressive disorder with single episode, in partial remission UNIQUE (obstructive sleep apnea) Sinus node dysfunction Type 2 diabetes mellitus without complication, without long-term current use of insulin Surgical History Surgical History S/P placement of cardiac pacemaker Family History Family History Father Family history of malignant neoplasm, Onset Age: 82 Family history of blood dyscrasia Sibling Family history of lung cancer, Onset Age: 67 Depression Family history of glaucoma Family history of alcoholism Mother Family history of malignant neoplasm of uterus, Onset Age: 70 Depression Other Cerebrovascular accident Diabetes mellitus Hypertension Social History Social History Social History: Danial May 26, 2019; Parkinson's. She is getting along better than expected. Smoking packs per day: 3 Smoking cigarettes per day: 60.0 Y
[2020-02-05 13:11] VITALS: BMI 35.2
== END 2020-01-05 08:03 | disposition home or self-care (01) ==
LOC: ANHCSM 08:03
PROVIDERS: PCP Internal Medicine; Visit Provider Nurse Practitioner Family
DX: G47.33 Obstructive sleep apnea (adult) (pediatric) (principal)
CPT/HCPCS: 95811

== ENCOUNTER 2020-01-25 08:55 | Outpatient (CLI) | payer MEDICARE, SELFPAY ==
--- NOTE | ~2020-01-25 | MM_ITS ---
EXAMINATION: MM screening lou BI w carolynn HISTORY: Screening mammogram TECHNIQUE: Craniocaudal and mediolateral oblique 3-D tomosynthesis images were obtained and synthetic 2-D images were generated. CAD analysis was submitted and interpreted. COMPARISON: 10/07/2018, 09/12/2017 bilateral digital screening mammogram examinations 08/14/2016 diagnostic right mammogram and limited right breast ultrasound 07/27/2016 bilateral digital screening mammogram BREAST PARENCHYMAL COMPOSITION: The breasts are almost entirely fatty. FINDINGS: Left-sided pacemaker device overlies the left axilla. Bilateral axillary tail benign-appear ing stable lymph nodes are noted. Scattered bilateral benign calcifications are again noted. There is no evidence of suspicious mass, c alcification, or architectural distortion to suggest malignancy in either breast. There has been no s uspicious interval change. IMPRESSION: 1. No mammographic evidence of malignancy. 2. Recommend routine screening mammography in one year. BI-RADS Category 2: Benign finding(s). Reviewed, dictated and finalized at location A. [facility]
== END 2020-01-25 08:56 | disposition home or self-care (01) ==
LOC: ANHIMG 08:57
PROVIDERS: PCP Internal Medicine; Visit Provider Internal Medicine
DX: Z12.31 Encounter for screening mammogram for malignant neoplasm of breast (principal)
CPT/HCPCS: 77063; 77067

== ENCOUNTER 2020-09-06 09:17 | Outpatient (CLI) | payer MEDICARE, SELFPAY ==
[2020-09-06 09:51] LABS: Basophils Absolute Auto 0.1 K/mm3 (0.0-0.1); Basophils Percent Auto 0.9 % (0.2-1.2); Eosinophils Absolute Auto 0.1 K/mm3 (0-0.3); Eosinophils Percent Auto 1.4 % (0-4.4); Hematocrit 41.8 % (37.0-47.0); Hemoglobin 13.5 g/dL (12.0-15.0); Immature Granulocyte Absolute 0.03 K/mm3 (0.00-0.031); Immature Granulocyte Percent A 0.5 % (0-0.5); Lymphocytes Absolute Auto 2.55 K/mm3 (0.9-3.2); Lymphocytes Percent Auto 39.4 % (18.3-44.2); Mean Corpuscular HGB Conc 32.3 g/dl (32-36); Mean Corpuscular Hemoglobin 31.3 pg (26-34); Mean Platelet Volume 9.6 fl (7.4-10.4); Monocytes Absolute Auto 0.4 K/mm3 (0.1-0.6); Monocytes Percent Auto 6.2 % (2.6-8.5); Neutrophils Absolute Auto 3.4 K/mm3 (1.3-6.7); Neutrophils Percent Auto 51.6 % (45.5-73.1); Platelet Count Result 231 k/mm3 (150-375); Red Blood Count 4.31 M/mm3 (4.2-5.4); Red Cell Distribution Width 12.5 % (11.5-14.5); White Blood Count 6.5 K/mm3 (4.5-10.0)
[2020-09-06 10:01] LABS: Alanine Aminotransferase 19 U/L (4-35); Albumin Level 4.3 g/dL (3.5-5.1); Alkaline Phosphatase 71 U/L (38-126); Anion Gap 9 mmol/L (8-16); Aspartate Amino Transferase 32 U/L (14-36); Bilirubin,Total 0.3 mg/dL (0.2-1.3); Blood Urea Nitrogen 18 mg/dL (7-17); Calcium 9.5 mg/dL (8.4-10.2); Carbon Dioxide 25 mmol/L (22-30); Chloride 104 mmol/L (98-107); Cholesterol 165 mg/dL (0-200); Estimated Glomerular Filt Rate > 60; Glucose 105 mg/dL (65-105); HDL Direct 47 mg/dL; Potassium 4.3 mmol/L (3.4-5.0); Sodium 138 mmol/L (137-145); Triglycerides 114 mg/dL (<150)
[2020-09-06 10:03] LABS: Hemoglobin A1C 6.2 % (<5.7)
[2020-09-06 10:12] LABS: LDL Cholesterol Direct 85 mg/dL
[2020-09-06 10:42] LABS: Vitamin D 25 Hydroxy 47.4 ng/mL
[2020-09-06 11:35] LABS: Creatinine Urine 89.2 mg/dL
[2020-09-06 11:40] LABS: MALB Creatinine Ratio 8.5 mg/g (0-30); Microalbumin Urine Random 7.6 mg/L (0-16.7)
== END 2020-09-06 09:18 | disposition home or self-care (01) ==
PROVIDERS: PCP Internal Medicine; Visit Provider Internal Medicine
DX: E03.9 Hypothyroidism, unspecified (principal); E11.9 Type 2 diabetes mellitus without complications; E55.9 Vitamin D deficiency, unspecified; E78.2 Mixed hyperlipidemia; K21.9 Gastro-esophageal reflux disease without esophagitis
CPT/HCPCS: 36415; 80053; 80061; 82043; 82306; 83036; 84443; 85025

== ENCOUNTER 2021-02-16 13:26 | Outpatient (CLI) | payer MEDICARE, SELFPAY ==
[2021-02-16 14:09] LABS: Anion Gap 7 mmol/L (8-16); Blood Urea Nitrogen 16 mg/dL (7-17); Calcium 9.8 mg/dL (8.4-10.2); Carbon Dioxide 25 mmol/L (22-30); Chloride 104 mmol/L (98-107); Estimated Glomerular Filt Rate > 60; Glucose 130 mg/dL (65-110); Potassium 3.9 mmol/L (3.4-5.0); Sodium 136 mmol/L (137-145)
[2021-02-16 14:18] LABS: Hemoglobin A1C 6.7 % (<5.7)
[2021-02-16 14:25] LABS: Creatinine Urine 79.9 mg/dL
[2021-02-16 14:30] LABS: Microalbumin Urine Random 12.8 mg/L (0-16.7)
== END 2021-02-16 13:27 | disposition home or self-care (01) ==
LOC: ANHLAB 13:29
PROVIDERS: PCP Internal Medicine; Visit Provider Internal Medicine
DX: E11.9 Type 2 diabetes mellitus without complications (principal)
CPT/HCPCS: 36415; 80048; 82043; 83036

== ENCOUNTER 2021-04-25 10:03 | Outpatient (CLI) | payer MEDICARE, SELFPAY ==
--- NOTE | ~2021-04-25 | MM_ITS ---
EXAMINATION: MM screening lou BI w carolynn HISTORY: Screening mammogram TECHNIQUE: Craniocaudal and mediolateral oblique 3-D tomosynthesis images were obtained and synthetic 2-D images were generated. CAD analysis was submitted and interpreted. COMPARISON: 01/25/2020, 10/07/2018, 09/12/2017 bilateral screening mammogram examinations BREAST PARENCHYMAL COMPOSITION: The breasts are almost entirely fatty. FINDINGS: There is no evidence of suspicious mass, calcification, or architectural distortion to sugg est malignancy in either breast. There has been no suspicious interval change. IMPRESSION: 1. No mammographic evidence of malignancy. 2. Recommend routine screening mammography in one year. BI-RADS Category 1: Negative Reviewed, dictated and finalized at location A. STICS OPERATIONS DIRECTOR
== END 2021-04-25 10:04 | disposition home or self-care (01) ==
PROVIDERS: PCP Internal Medicine; Visit Provider Internal Medicine
DX: Z12.31 Encounter for screening mammogram for malignant neoplasm of breast (principal)
CPT/HCPCS: 77063; 77067

== ENCOUNTER 2021-08-25 07:59 | Outpatient (CLI) | payer MEDICARE, SELFPAY ==
[2021-08-25 08:29] LABS: Basophils Absolute Auto 0.1 K/mm3 (0.0-0.1); Basophils Percent Auto 1.2 % (0.2-1.2); Eosinophils Absolute Auto 0.1 K/mm3 (0-0.3); Eosinophils Percent Auto 2.2 % (0-4.4); Hematocrit 35.9 % (37.0-47.0); Hemoglobin 11.4 g/dL (12.0-15.0); Immature Granulocyte Absolute 0.02 K/mm3 (0.00-0.031); Immature Granulocyte Percent A 0.3 % (0-0.5); Lymphocytes Percent Auto 36.4 % (18.3-44.2); Mean Corpuscular HGB Conc 31.8 g/dl (32-36); Mean Corpuscular Hemoglobin 27.8 pg (26-34); Mean Corpuscular Volume 87.6 fl (80-100); Mean Platelet Volume 9.8 fl (7.4-10.4); Monocytes Absolute Auto 0.5 K/mm3 (0.1-0.6); Monocytes Percent Auto 8.4 % (2.6-8.5); Neutrophils Absolute Auto 3.1 K/mm3 (1.3-6.7); Neutrophils Percent Auto 51.5 % (45.5-73.1); Platelet Count Result 225 k/mm3 (150-375); Red Cell Distribution Width 15.1 % (11.5-14.5)
[2021-08-25 08:39] LABS: Alanine Aminotransferase 21 U/L (6-35); Alkaline Phosphatase 73 U/L (38-126); Anion Gap 6 mmol/L (8-16); Aspartate Amino Transferase 33 U/L (14-36); Bilirubin,Total 0.3 mg/dL (0.2-1.3); Blood Urea Nitrogen 15 mg/dL (7-17); Calcium 8.9 mg/dL (8.4-10.2); Carbon Dioxide 29 mmol/L (22-30); Chloride 104 mmol/L (98-107); Cholesterol 158 mg/dL (0-200); Estimated Glomerular Filt Rate > 60; Glucose 132 mg/dL (65-110); HDL Direct 42 mg/dL; Potassium 3.9 mmol/L (3.4-5.0); Sodium 139 mmol/L (137-145); Triglycerides 224 mg/dL (<150)
[2021-08-25 08:55] LABS: Hemoglobin A1C 6.5 % (<5.7)
[2021-08-25 08:57] LABS: LDL Cholesterol Direct 75 mg/dL
[2021-08-25 09:06] LABS: Creatinine Urine 197.4 mg/dL
[2021-08-25 09:08] LABS: MALB Creatinine Ratio 16.2 mg/g (0-30); Microalbumin Urine Random 31.9 mg/L (0-16.7)
== END 2021-08-25 08:00 | disposition home or self-care (01) ==
PROVIDERS: PCP Internal Medicine; Visit Provider Internal Medicine
DX: E03.9 Hypothyroidism, unspecified (principal); E11.9 Type 2 diabetes mellitus without complications; E55.9 Vitamin D deficiency, unspecified; E78.2 Mixed hyperlipidemia; G47.33 Obstructive sleep apnea (adult) (pediatric); I10 Essential (primary) hypertension; I49.5 Sick sinus syndrome
CPT/HCPCS: 36415; 80053; 80061; 82043; 83036; 84443; 85025

== ENCOUNTER 2021-08-30 16:34 | Outpatient (CLI) | payer MEDICARE, SELFPAY ==
[2021-08-30 17:39] LABS: IFOB Positive Control Positive; Immunochemical Fecal Occult Bl Negative (N)
== END 2021-08-30 16:35 | disposition home or self-care (01) ==
LOC: ANHLAB 16:35
PROVIDERS: PCP Internal Medicine; Visit Provider Internal Medicine
DX: D64.9 Anemia, unspecified (principal)
CPT/HCPCS: 82274

== ENCOUNTER 2021-09-01 10:44 | Outpatient (CLI) | payer MEDICARE, SELFPAY ==
[2021-09-01 12:59] LABS: Iron 63 ug/dL (37-170)
[2021-09-01 13:10] LABS: Percent Iron Saturation 13 % (20-50)
== END 2021-09-01 10:45 | disposition home or self-care (01) ==
LOC: ANHLAB 10:52
PROVIDERS: PCP Internal Medicine; Visit Provider Internal Medicine
DX: D64.9 Anemia, unspecified (principal)
CPT/HCPCS: 36415; 82728; 83540; 83550

== ENCOUNTER 2022-06-06 15:32 | Outpatient (CLI) | payer MEDICARE, SELFPAY ==
[2022-06-06 16:05] LABS: Alanine Aminotransferase 45 U/L (6-35); Albumin Level 4.4 g/dL (3.5-5.1); Alkaline Phosphatase 62 U/L (38-126); Anion Gap 5 mmol/L (8-16); Aspartate Amino Transferase 70 U/L (14-36); Bilirubin,Total 1.4 mg/dL (0.2-1.3); Blood Urea Nitrogen 13 mg/dL (7-17); Calcium 9.7 mg/dL (8.4-10.2); Carbon Dioxide 30 mmol/L (22-30); Chloride 101 mmol/L (98-107); Cholesterol 165 mg/dL (0-200); Estimated Glomerular Filt Rate > 60; Glucose 104 mg/dL (65-110); HDL Direct 35 mg/dL; Potassium 3.7 mmol/L (3.4-5.0); Sodium 136 mmol/L (137-145); Triglycerides 120 mg/dL (<150)
[2022-06-06 16:14] LABS: LDL Cholesterol Direct 102 mg/dL
[2022-06-06 16:15] LABS: Hemoglobin A1C 6.9 % (<5.7)
== END 2022-06-06 15:33 | disposition home or self-care (01) ==
LOC: ANHLAB 15:33
PROVIDERS: PCP Internal Medicine; Visit Provider Internal Medicine
DX: E11.9 Type 2 diabetes mellitus without complications (principal); I10 Essential (primary) hypertension; E03.9 Hypothyroidism, unspecified; E78.5 Hyperlipidemia, unspecified
CPT/HCPCS: 36415; 80053; 80061; 83036; 84443

== ENCOUNTER 2022-06-21 15:24 | Outpatient (CLI) | payer MEDICARE, SELFPAY ==
--- NOTE | ~2022-06-21 | MM_ITS ---
EXAMINATION: MM screening lou BI w carolynn HISTORY: Screening mammogram TECHNIQUE: Craniocaudal and mediolateral oblique 3-D tomosynthesis images were obtained and synthetic 2-D images were generated. CAD analysis was submitted and interpreted. COMPARISON: April 25, 2021, January 25, 2020, October 07, 2018 bilateral screening mammogram examin ations BREAST PARENCHYMAL COMPOSITION: The breasts are almost entirely fatty. FINDINGS: There is a biopsy marker again noted on the left; history of prior benign left breast biops y. There is no evidence of suspicious mass, calcification, or architectural distortion to suggest mal ignancy in either breast. There has been no suspicious interval change. IMPRESSION: 1. No mammographic evidence of malignancy. 2. Recommend routine screening mammography in one year. BI-RADS Category 1: Negative Reviewed, dictated and finalized at location B.
== END 2022-06-21 15:25 | disposition home or self-care (01) ==
PROVIDERS: PCP Internal Medicine; Visit Provider Internal Medicine
DX: Z12.31 Encounter for screening mammogram for malignant neoplasm of breast (principal)
CPT/HCPCS: 77063; 77067

== ENCOUNTER 2022-08-01 11:55 | Outpatient (CLI) | payer MEDICARE, SELFPAY ==
[2022-08-01 12:20] LABS: Basophils Absolute Auto 0.1 K/mm3 (0.0-0.1); Basophils Percent Auto 0.8 % (0.2-1.2); Eosinophils Absolute Auto 0.1 K/mm3 (0-0.3); Eosinophils Percent Auto 1.4 % (0-4.4); Hematocrit 42.3 % (37.0-47.0); Hemoglobin 14.6 g/dL (12.0-15.0); Immature Granulocyte Absolute 0.04 K/mm3 (0.00-0.031); Immature Granulocyte Percent A 0.4 % (0-0.5); Lymphocytes Absolute Auto 2.48 K/mm3 (0.9-3.2); Lymphocytes Percent Auto 27.4 % (18.3-44.2); Mean Corpuscular HGB Conc 34.5 g/dl (32-36); Mean Corpuscular Hemoglobin 35.2 pg (26-34); Mean Corpuscular Volume 101.9 fl (80-100); Monocytes Absolute Auto 0.6 K/mm3 (0.1-0.6); Monocytes Percent Auto 6.4 % (2.6-8.5); Neutrophils Absolute Auto 5.7 K/mm3 (1.3-6.7); Neutrophils Percent Auto 63.6 % (45.5-73.1); Platelet Count Result 187 k/mm3 (150-375); Red Blood Count 4.15 M/mm3 (4.2-5.4); Red Cell Distribution Width 13.1 % (11.5-14.5)
[2022-08-01 12:25] LABS: Alanine Aminotransferase 33 U/L (6-35); Albumin Level 4.1 g/dL (3.5-5.1); Alkaline Phosphatase 69 U/L (38-126); Anion Gap 5 mmol/L (8-16); Aspartate Amino Transferase 48 U/L (14-36); Bilirubin,Total 1.1 mg/dL (0.2-1.3); Blood Urea Nitrogen 17 mg/dL (7-17); Calcium 9.5 mg/dL (8.4-10.2); Carbon Dioxide 29 mmol/L (22-30); Chloride 103 mmol/L (98-107); Estimated Glomerular Filt Rate > 60; Glucose 163 mg/dL (65-110); Potassium 3.9 mmol/L (3.4-5.0); Sodium 137 mmol/L (137-145)
== END 2022-08-01 11:56 | disposition home or self-care (01) ==
LOC: ANHLAB 11:56
PROVIDERS: PCP Family Medicine; Visit Provider Nurse Practitioner Family
DX: R10.9 Unspecified abdominal pain (principal)
CPT/HCPCS: 36415; 80053; 85025

== ENCOUNTER 2022-08-09 08:02 | Outpatient (CLI) | payer MEDICARE, SELFPAY ==
--- NOTE | ~2022-08-09 | CT_ITS ---
Non-contrast CT scan of the Abdomen and Pelvis Clinical indication: Abdominal pain Technique: 2.5 mm axial scans were obtained through the abdomen and pelvis without intravenous or or al contrast. Dose reduction technique was used on this scan by utilizing automated exposure control a nd iterative reconstruction technique. The dose-length product (DLP) was 1216.04 mGy-cm. COMPARISON: 10/07/2015 Findings: Images through the lung bases reveal focal chronic left basilar scarring and calcified lef t basilar granuloma. There is no evidence of renal or ureteral calculi. The kidneys and the ureters are nondilated. There is probable micronodular contour of the liver, suspicious for cirrhosis. Multiple small calcifi ed gallstones are present. The spleen, pancreas, and adrenals appear normal. There is no aortic aneu rysm. There is focal wall thickening and inflammatory change at the distal descending colon, compatible wit h acute diverticulitis. No abscess or free air evident. No bowel obstruction. Images through the pelvis were performed. There is no evidence of ascites or lymphadenopathy. Urinary bladder unremarkable. No adnexal mass seen. No ascites. Impression: Acute diverticulitis of the distal descending colon. No abscess or free air. Probable cirrhotic change of the liver. Cholelithiasis. Reviewed, dictated and finalized at location . Impression: Acute diverticulitis of the distal descending colon. No abscess or free air. Probable cirrhotic change of the liver. Cholelithiasis.
== END 2022-08-09 08:03 | disposition home or self-care (01) ==
PROVIDERS: PCP Family Medicine; Visit Provider Nurse Practitioner Family
DX: K80.20 Calculus of gallbladder without cholecystitis without obstruction (principal); K57.32 Diverticulitis of large intestine without perforation or abscess without bleeding
CPT/HCPCS: 74176

== ENCOUNTER 2022-10-18 07:20 | Outpatient (CLI) | payer MEDICARE, SELFPAY ==
[2022-10-18 08:44] LABS: Alanine Aminotransferase 29 U/L (6-35); Albumin Level 3.9 g/dL (3.5-5.1); Alkaline Phosphatase 77 U/L (38-126); Anion Gap 5 mmol/L (8-16); Aspartate Amino Transferase 41 U/L (14-36); Bilirubin,Total 0.5 mg/dL (0.2-1.3); Blood Urea Nitrogen 11 mg/dL (7-17); Calcium 9.4 mg/dL (8.4-10.2); Carbon Dioxide 28 mmol/L (22-30); Chloride 102 mmol/L (98-107); Cholesterol 153 mg/dL (0-200); Estimated Glomerular Filt Rate > 60; Glucose 156 mg/dL (65-110); HDL Direct 41 mg/dL; Sodium 135 mmol/L (137-145); Triglycerides 189 mg/dL (<150)
[2022-10-18 08:55] LABS: LDL Cholesterol Direct 78 mg/dL
[2022-10-18 11:19] LABS: Hemoglobin A1C 6.1 % (<5.7)
[2022-10-18 11:42] LABS: Creatinine Urine 122.5 mg/dL
[2022-10-18 11:46] LABS: Microalbumin Urine Random 12.2 mg/L (0-16.7)
== END 2022-10-18 07:21 | disposition home or self-care (01) ==
PROVIDERS: PCP Nurse Practitioner Family; Visit Provider Nurse Practitioner Family
DX: E78.2 Mixed hyperlipidemia (principal); G47.33 Obstructive sleep apnea (adult) (pediatric); I10 Essential (primary) hypertension; I49.5 Sick sinus syndrome; K21.9 Gastro-esophageal reflux disease without esophagitis; E11.9 Type 2 diabetes mellitus without complications
CPT/HCPCS: 36415; 80053; 80061; 82043; 83036; 84443

== ENCOUNTER 2023-02-26 14:44 | Outpatient (CLI) | payer MEDICARE, SELFPAY ==
--- NOTE | ~2023-02-26 | DEXA_ITS ---
Bone Density Report Name: ANGE DC Age: 82 Sex: Female Ethnicity: White Date of : 1940 Indication: postmenopausal; screening for osteoporosis; height loss; Referring Provider: VERONICA PAGE Study: Bone densitometry was performed. Exam Date: February 26, 2023 Accession number: [id number] Bone Density: Region BMD T-score Z-score Classification AP Spine(L1-L4) 0.995 -0.5 2.3 Normal Femoral Neck (Left) 0.628 -2.0 0.5 Osteopenia Total Hip (Left) 0.850 -0.8 1.5 Normal Femoral Neck (Right) 0.702 -1.3 1.1 Osteopenia Total Hip (Right) 0.941 0.0 2.2 Normal Total Hip Mean 0.895 -0.4 1.9 Normal World Health Organization criteria for BMD impression classify patients as: Normal (T-score at or above -1.0), Osteopenia (T-score between -1.0 and -2.5), or Osteoporosis (T-score at or below -2.5). 10-year Fracture Risk(1): Major Osteoporotic Fracture 14% Hip Fracture 3.9% Reported Risk Factors: [place] (), Neck BMD=0.628, BMI=39.9 (1) FRAX(R) Version 3.08. Fracture probability calculated for an untreated patient. Fracture probability may be lower if the patient has received treatment. Clinical Information Provided by Patient: Has used the following medications: Vitamin D Patient maximum height was 62 Menopause Age: 51 Drinks caffeinated beverages Onset of menses at age 11 Number of children 0 Impression: The patient has low bone mass, based on the Left Femoral Neck T-score. The patient has an estimated ten-year risk of hip fracture of 3.9% and an estimated ten-year risk of major fracture of 14%, based on the WHO FRAX algorithm. Discussion: BONE DENSITY IS LOW AT ONE OR MORE SKELETAL SITES. THE PATIENT'S BMD AND CLINICAL RISK FACTORS CONTRIBUTE TO THIS PATIENT'S INCREASED RISK OF FRACTURE. This patient's lowest T-score is low at one or more skeletal sites. It meets the World Health Organization's (WHO) criteria for ?low bone mass? (T-score between -1.0 and -2.5). The patient's 10-year risk of hip fracture as calculated by FRAX exceeds the threshold where pharmacological therapy is recommended by the National Osteoporosis Foundation (NOF). However, all treatment decisions require clinical judgment and consideration of individual patient factors, including patient preferences, comorbidities, previous drug use, risk factors not captured in the FRAX model (e.g., frailty, falls, vitamin D deficiency, increased bone turnover, interval significant decline in bone density) and possible under or overestimation of fracture risk by FRAX. The patient should follow a healthful lifestyle (good nutrition with adequate calcium and vitamin D, and appropriate weight-bearing exercise). Follow-Up: Consider a repeat BMD and Vertebral Fracture Assessment (VFA) exam in 2 years or sooner if
--- NOTE | ~2023-02-26 | US_ITS ---
EXAMINATION: US thyroid DATE: 02/26/2023 15:51 INDICATION: Hypothyroidism, unspecified. TECHNIQUE: Multiple ultrasound images of the thyroid were obtained. COMPARISON: Ultrasound 05/03/2014 FINDINGS: The right thyroid lobe measures 4.0 x 1.5 x 1.6 cm. The left thyroid lobe measures 3.8 x 1.4 x 1.3 c m. In the left thyroid lobe, there is a 13 mm solid, hypoechoic, wider than tall nodule with lobulat ed margin and macrocalcifications (TI-RADS TR5), decreased in size from 05/03/14, likely benign. IMPRESSION: 1. Left thyroid nodule with decrease in size from 05/03/2014, likely benign. No follow-up is needed. Reviewed, dictated and finalized at location E. REPAIR TECHNICIAN IMPRESSION: 1. Left thyroid nodule with decrease in size from 05/03/2014, likely benign. No f ollow-up is needed.
== END 2023-02-26 14:45 | disposition home or self-care (01) ==
PROVIDERS: PCP Nurse Practitioner Family; Visit Provider Nurse Practitioner Family
DX: Z78.0 Asymptomatic menopausal state (principal); E03.9 Hypothyroidism, unspecified; E04.1 Nontoxic single thyroid nodule; M85.852 Other specified disorders of bone density and structure, left thigh; M85.851 Other specified disorders of bone density and structure, right thigh
CPT/HCPCS: 76536; 77080

== ENCOUNTER 2023-04-20 09:25 | Outpatient (CLI) | payer MEDICARE, SELFPAY ==
[2023-04-20 09:51] LABS: Basophils Absolute Auto 0.1 K/mm3 (0.0-0.1); Eosinophils Absolute Auto 0.1 K/mm3 (0-0.3); Eosinophils Percent Auto 1.9 % (0-4.4); Hematocrit 43.6 % (37.0-47.0); Immature Granulocyte Absolute 0.01 K/mm3 (0.00-0.031); Immature Granulocyte Percent A 0.2 % (0-0.5); Lymphocytes Absolute Auto 1.78 K/mm3 (0.9-3.2); Lymphocytes Percent Auto 34.2 % (18.3-44.2); Mean Corpuscular HGB Conc 34.4 g/dl (32-36); Mean Corpuscular Hemoglobin 34.8 pg (26-34); Mean Corpuscular Volume 101.2 fl (80-100); Mean Platelet Volume 9.6 fl (7.4-10.4); Monocytes Absolute Auto 0.3 K/mm3 (0.1-0.6); Monocytes Percent Auto 5.8 % (2.6-8.5); Neutrophils Percent Auto 56.9 % (45.5-73.1); Platelet Count Result 146 k/mm3 (150-375); Red Blood Count 4.31 M/mm3 (4.2-5.4); Red Cell Distribution Width 13.1 % (11.5-14.5); White Blood Count 5.2 K/mm3 (4.5-10.0)
[2023-04-20 10:03] LABS: Alanine Aminotransferase 24 U/L (6-35); Alkaline Phosphatase 65 U/L (38-126); Anion Gap 6 mmol/L (8-16); Aspartate Amino Transferase 41 U/L (14-36); Bilirubin,Total 1.2 mg/dL (0.2-1.3); Blood Urea Nitrogen 13 mg/dL (7-17); Calcium 9.9 mg/dL (8.4-10.2); Carbon Dioxide 28 mmol/L (22-30); Chloride 102 mmol/L (98-107); Estimated Glomerular Filt Rate > 60; Glucose 233 mg/dL (65-110); Hemoglobin A1C 6.6 % (<5.7); Potassium 3.8 mmol/L (3.4-5.0); Sodium 136 mmol/L (137-145)
[2023-04-20 10:59] LABS: Vitamin D 25 Hydroxy 55.4 ng/mL
[2023-04-20 13:46] LABS: Creatinine Urine 51.4 mg/dL
[2023-04-20 13:52] LABS: MALB Creatinine Ratio 27.2 mg/g (0-30)
== END 2023-04-20 09:26 | disposition home or self-care (01) ==
LOC: ANHLAB 09:28
PROVIDERS: PCP Nurse Practitioner Family; Visit Provider Nurse Practitioner Family
DX: E11.29 Type 2 diabetes mellitus with other diabetic kidney complication (principal); E55.9 Vitamin D deficiency, unspecified; I10 Essential (primary) hypertension; K21.9 Gastro-esophageal reflux disease without esophagitis; R80.9 Proteinuria, unspecified
CPT/HCPCS: 36415; 80053; 82043; 82306; 83036; 85025

== ENCOUNTER 2023-09-26 08:20 | Outpatient (CLI) | payer MEDICARE, SELFPAY ==
[2023-09-26 08:55] LABS: Basophils Absolute Auto 0.1 K/mm3 (0.0-0.1); Eosinophils Absolute Auto 0.1 K/mm3 (0-0.3); Eosinophils Percent Auto 1.4 % (0-4.4); Hematocrit 43.4 % (37.0-47.0); Immature Granulocyte Absolute 0.02 K/mm3 (0.00-0.031); Immature Granulocyte Percent A 0.4 % (0-0.5); Lymphocytes Absolute Auto 2.07 K/mm3 (0.9-3.2); Lymphocytes Percent Auto 41.2 % (18.3-44.2); Mean Corpuscular HGB Conc 34.6 g/dl (32-36); Mean Corpuscular Hemoglobin 35.8 pg (26-34); Mean Corpuscular Volume 103.6 fl (80-100); Monocytes Absolute Auto 0.4 K/mm3 (0.1-0.6); Monocytes Percent Auto 7.4 % (2.6-8.5); Neutrophils Absolute Auto 2.4 K/mm3 (1.3-6.7); Neutrophils Percent Auto 48.6 % (45.5-73.1); Platelet Count Result 146 k/mm3 (150-375); Red Blood Count 4.19 M/mm3 (4.2-5.4); Red Cell Distribution Width 13.1 % (11.5-14.5)
[2023-09-26 09:17] LABS: Alanine Aminotransferase 28 U/L (6-35); Albumin Level 4.1 g/dL (3.5-5.1); Alkaline Phosphatase 87 U/L (38-126); Anion Gap 9 mmol/L (4-12); Aspartate Amino Transferase 47 U/L (14-36); Bilirubin,Total 0.9 mg/dL (0.2-1.3); Blood Urea Nitrogen 16 mg/dL (7-17); Calcium 9.6 mg/dL (8.4-10.2); Carbon Dioxide 27 mmol/L (22-30); Chloride 102 mmol/L (98-107); Estimated Glomerular Filt Rate > 60; Glucose 127 mg/dL (65-110); Potassium 3.9 mmol/L (3.4-5.0); Sodium 138 mmol/L (137-145)
[2023-09-26 10:30] LABS: Hemoglobin A1C 5.9 % (<5.7)
== END 2023-09-26 08:21 | disposition home or self-care (01) ==
LOC: ANHLAB 08:27
PROVIDERS: PCP Nurse Practitioner Family; Visit Provider Nurse Practitioner Family
DX: E11.29 Type 2 diabetes mellitus with other diabetic kidney complication (principal); R79.89 Other specified abnormal findings of blood chemistry; R80.9 Proteinuria, unspecified; R93.2 Abnormal findings on diagnostic imaging of liver and biliary tract; E55.9 Vitamin D deficiency, unspecified; R10.9 Unspecified abdominal pain
CPT/HCPCS: 36415; 80053; 83036; 85025

== ENCOUNTER 2023-10-17 09:29 | Outpatient (CLI) | payer MEDICARE, SELFPAY ==
--- NOTE | ~2023-10-17 | MM_ITS ---
EXAMINATION: MM screening lou BI w carolynn HISTORY: Screening TECHNIQUE: Craniocaudal and mediolateral oblique 3-D tomosynthesis images were obtained and synthetic 2-D images were generated. CAD analysis was submitted and interpreted. COMPARISON: Comparison to multiple prior studies sequentially, with oldest reviewed study dated 09/12. BREAST PARENCHYMAL COMPOSITION: There are scattered areas of fibroglandular density. FINDINGS: The right breast is stable without evidence for malignancy. There is a developing mass in t he lower outer quadrant of the left breast, middle depth. IMPRESSION: 1. Developing left breast mass, lower outer quadrant middle depth. 2. Additional mammographic views and possible breast ultrasound are recommended. BI-RADS Category 0: Incomplete: Needs additional imaging evaluation. Reviewed, dictated and finalized at location B. IMPRESSION: 1. Developing left breast mass, lower outer quadrant middle depth. 2. Additional mammographic views and possible breast ultrasound are recommended . BI-RADS Category 0: Incomplete: Needs additional imaging evaluation.
== END 2023-10-17 09:30 | disposition home or self-care (01) ==
LOC: ANHIMG 09:30
PROVIDERS: PCP Nurse Practitioner Family; Visit Provider Nurse Practitioner Family
DX: Z12.31 Encounter for screening mammogram for malignant neoplasm of breast (principal); R92.8 Other abnormal and inconclusive findings on diagnostic imaging of breast
CPT/HCPCS: 77063; 77067

== ENCOUNTER 2023-11-18 12:47 | Outpatient (CLI) | payer MEDICARE, SELFPAY ==
--- NOTE | ~2023-11-18 | MMUS_ITS ---
EXAMINATION: MM diagnostic lou LT w carolynn, US breast LT limited HISTORY: Left breast mass TECHNIQUE: Additional 3-D tomosynthesis images of the left breast were performed and synthetic 2-D im ages were generated. CAD analysis was submitted and interpreted. High resolution limited left breast ultrasound was performed. COMPARISON: 10/17/2023, 06/21/2022, 04/25/2021 BREAST PARENCHYMAL COMPOSITION:Not Dense. There are scattered areas of fibroglandular density. FINDINGS: MAMMOGRAPHIC FINDINGS: Spot compression views confirm a persistent circumscribed 6 mm mass at the outer left breast. ULTRASOUND: There is a 5 mm simple cyst, round, circumscribed, anechoic, benign o'clock position left breast, 4 c m from the nipple. This correlates with the mammographic finding. IMPRESSION: No evidence for malignancy. 5 mm simple left breast cyst, as above. BI-RADS Category 2: Benign finding(s). Reviewed, dictated and finalized at location . IMPRESSION: No evidence for malignancy. 5 mm simple left breast cyst, as above. BI-RADS Category 2: Benign finding(s).
== END 2023-11-18 12:48 | disposition home or self-care (01) ==
LOC: ANHIMG 12:48
PROVIDERS: PCP Nurse Practitioner Family; Visit Provider Nurse Practitioner Family
DX: R92.8 Other abnormal and inconclusive findings on diagnostic imaging of breast (principal)
CPT/HCPCS: 76642; 77061; 77065; G0279

== ENCOUNTER 2023-12-25 08:11 | Outpatient (CLI) | payer MEDICARE, SELFPAY ==
--- NOTE | ~2023-12-25 | XR_ITS ---
XR ankle LT min 3V Ordering provider: Bianca Perez APRN History: . W19.XXXA - Unspecified fall, initial encounter ATTN LAT PAIN . Comparison: None. FINDINGS: BONES: Nondisplaced fracture of the tip of the lateral malleolus. JOINT SPACES: The ankle mortise is normal. SOFT TISSUES: Soft tissue swelling over the lateral malleolus. Calcaneal spur. Ossification of the in sertion of the tendo Achilles. IMPRESSION: Fracture of the tip of the lateral malleolus. Lateral soft tissue swelling Reviewed, dictated and finalized at location A.
== END 2023-12-25 08:12 | disposition home or self-care (01) ==
PROVIDERS: PCP Nurse Practitioner Family; Visit Provider Nurse Practitioner Family
DX: S82.62XA Displaced fracture of lateral malleolus of left fibula, initial encounter for closed fracture (principal); X58.XXXA Exposure to other specified factors, initial encounter
CPT/HCPCS: 73610

== ENCOUNTER 2024-07-07 09:28 | Outpatient (CLI) | payer MEDICARE, SELFPAY ==
[2024-07-07 09:52] LABS: Basophils Absolute Auto 0.1 K/mm3 (0.0-0.1); Basophils Percent Auto 1.1 % (0.2-1.2); Eosinophils Absolute Auto 0.1 K/mm3 (0-0.3); Eosinophils Percent Auto 1.9 % (0-4.4); Hematocrit 44.3 % (37.0-47.0); Hemoglobin 14.8 g/dL (12.0-15.0); Immature Granulocyte Absolute 0.02 K/mm3 (0.00-0.031); Immature Granulocyte Percent A 0.4 % (0-0.5); Lymphocytes Absolute Auto 2.33 K/mm3 (0.9-3.2); Lymphocytes Percent Auto 43.7 % (18.3-44.2); Mean Corpuscular HGB Conc 33.4 g/dl (32-36); Mean Corpuscular Volume 101.8 fl (80-100); Monocytes Absolute Auto 0.4 K/mm3 (0.1-0.6); Monocytes Percent Auto 7.3 % (2.6-8.5); Neutrophils Absolute Auto 2.4 K/mm3 (1.3-6.7); Neutrophils Percent Auto 45.6 % (45.5-73.1); Platelet Count Result 131 k/mm3 (150-375); Red Blood Count 4.35 M/mm3 (4.2-5.4); Red Cell Distribution Width 13.2 % (11.5-14.5); White Blood Count 5.3 K/mm3 (4.5-10.0)
[2024-07-07 09:57] LABS: Appearance Urine Clear (Clear); Color Urine Yellow (Yellow); Specific Grav Ur 1.025 (1.001-1.035)
[2024-07-07 09:58] LABS: Glucose Urine UA Negative (Negative); Ketones Urine Trace mg/dL (Negative); Protein Urine Negative (Negative)
--- OUTSIDE RECORDS SUMMARY | 2024-07-07 09:59 | XMS_ITS | Referral Summary ---
Author Organization [facility] Address [address] [place] [phone] Care Team Providers Care Technical Program Manager Name Role Phone Matthias Horta MD Primary Care Provider [phone] Encounters Date Type Department Care Team Description 05/26/2024 7:30 AM CDT Ancillary Procedure [facility] [address] [place] [address] [place] [id number] Cardiac pacemaker in situ (Primary Dx); Sick sinus syndrome (HCC); Sinus bradycardia from Last 3 Months Allergies Active Allergy Reactions Criticality Noted Date Comments Iodinated Contrast Media Other (See comments) Reaction: Swelling, Penicillins Rash Medium Reaction: RASH, , Tetracyclines Other (See comments) Reaction: OTHER REACTION, , Reaction: Swelling, Medications timolol (BETIMOL) 0.25 % ophthalmic solution instill 1 drop by ophthalmic route 2 times every day into affected eye(s) 0 0 5 Active aspirin 81 mg tablet take 1 tablet by oral route every day 0 0 5 Active cholecalciferol (VITAMIN D3) 2,000 unit capsule 0 0 5 Active fluticasone (FLONASE) 50 mcg/actuation nasal spray spray 2 spray by intranasal route every day in each nostril 0 spray 0 6 Active valsartan-hydro chlorothiazide (DIOVAN-HCT) 320-12.5 mg per tablet Take 1 tablet by mouth daily 0 Active levothyroxine (SYNTHROID) 75 mcg tablet 0 Active metFORMIN (GLUCOPHAGE) 500 mg tablet Take 2 tablets (1,000 mg total) by mouth 2 (two) times a day with meals 0 Active omeprazole (PriLOSEC) 40 mg capsule TK 1 C PO D 0 Active Vascepa 1 gram capsule TAKE 2 CAPSULES BY MOUTH TWICE DAILY FOR 30 DAYS 1 Active vit C/E/Zn/coppr/shiloh tein/zeaxan (PRESERVISION AREDS-2 ORAL) 5 Active citalopram (CeleXA) 10 mg tablet Take 1 tablet (10 mg total) by mouth daily Active Rybelsus 7 mg tablet Take 1 tablet (7 mg total) by mouth daily 3 Active Janumet XR 100-1,000 mg tablet, ER multiphase 24 hr Take 1 tablet by mouth daily 3 Active timolol (TIMOPTIC) 0.5 % ophthalmic solution 3 Active Mounjaro 5 mg/0.5 mL pen injector ADMINISTER 5 MG UNDER THE SKIN WEEKLY 4 Active Active Problems Problem Noted Date Diagnosed Date Class 2 severe obesity with serious comorbidity and body mass index (BMI) of 38.0 to 38.9 in adult 06/22/2022 Visit for wound check 11/05/2019 Cardiac pacemaker in situ 11/02/2019 Overview (01/08/2022): Medtronic Raine Dual Pacemaker. Dx; Sinus Node Dysfunction, Bradycardia. DOI 10/28/2019-[facility]. [facility] remote monitoring. Sick sinus syndrome 06/24/2019 Abnormal stress test 06/24/2019 Visit for wound check 04/30/2019 Status post placement of implantable loop record er 04/27/2019 Overview (11/02/2019): Medtronic Reveal Implanted Loop Recorder. Dx; Dizziness, Palpitations, Sinus Javier/Arrhythmia. DOI 04/24/2019-[facility]. [facility] remote monitoring. 10/28/2019-[facility] explanted. History of pulmonary embolism 04/10/2019 Hypertension associated with diabetes 04/10/2019 Abnormal EKG 04/10/2019 Pre-syncope 04/10/2019 Hyperlipidemia 02/03/2016 Overview (06/07/2016): Hyperlipidemia LDL goal <100 Preoperative state 02/03/2016 Overview (06/07/2016): Pre-op examination Sinus bradycardia 02/03/2016 Overview (06/07/2016): Sinus bradycardia Obstructive sleep apnea syndrome 02/03/2016 Overview (06/07/2016): Obstructive sleep apnea Essential hypertension 02/03/2016 Overview (06/07/2016): Essential hypertension Hypothyroidism 02/03/2016 Overview (06/07/2016): Hypothyroidism, unspecified type Thyroid lump 10/14/2014 Overview (06/07/2016): Thyroid mass Immunizations Immunization Administration Dates Next Due Influenza, Trivalent, IM (MDV) 12/23/2013 Pneumococcal, Unspecified 12/01/2012 Social History Tobacco Use Types Packs/Day Years Used Date Smoking Tobacco: Former Cigarettes 3 24 0 04/10/1964 - 04/10/1988 Smokeless Tobacco: Never Tobacco Cessation:Counseling Given: Not Answered Alcohol Use Standard Drinks/Week Comments No 0 (1 standard drink = 0.6 oz pur e alcohol) Comments Unknown Sex and Gender Information Value Date Recorded Sex Assigned at Not on file Legal Sex Female 12:07 PM FINANCIAL AGENT Gender Identity Female 11/19/2019 2:05 PM CDT Sexual Orientation Not on file Last Filed Vital Signs Vital Sign Reading Time Taken Comments Blood Pressure 122/82 07/04/2023 10:09 AM CDT Pulse 93 07/04/2023 10:09 AM CDT Temperature - - Respiratory Rate 16 12/09/2020 9:35 AM CDT Oxygen Saturation 95% 07/04/2023 10:09 AM CDT Inhaled Oxygen Concentration - - Weight 92.2 kg (203 lb 3.2 oz) 07/04/2023 10:09 AM CDT Height 160 cm (5' 3 ) 07/04/2023 10:09 AM CDT Body Mass Index 36 07/04/2023 10:09 AM CDT Plan of Treatment Not on file Procedures Procedure Name Priority Date/Time Associated Diagnosis Comments DEVICE CHECK - REMOTE Routine 05/27/2024 8:31 AM CDT Sick sinus syndrome (HCC) Sinus bradycardia LIPID PANEL Routine 03/05/2018 10:31 AM FINANCIAL AGENT from Last 3 Months or Most Recently Relevant to Health Maintenance Results * DEVICE CHECK - REMOTE (05/27/2024 8:31 AM CDT) Anatomical Region Laterality Modality Other Narrative 05/27/2024 10:10 AM CDT [employer]ronic [place] Dual Pacemaker. Dx; Sinus Node Dysfunction, Bradycardia. DOI 10/28/2019-[facility]. Carelink remote monitoring. Routine AAIR <> DDDR Pacemaker Remote. Transmission attached. Battery status: 2.98 V, 8.3 years remaining battery life to DESTINY. Stable lead impedances, pacing and sensing thresholds. Presenting rhythm: AP/VS AP-98.7%, CREDENTIALING ASSISTANT-< 0.1% No AT/AF episodes noted. No Ventricular high rate episodes detected. Medications: ASA 81 mg, Diovan HCT 320-12.5 mg See scanned report. Office pacemaker follow up: 08/26/24 [facility] remote f/u 6 months. Maxim Pedraza, RN Preet Barnes MD [facility] Final Result * (ABNORMAL) Lipid panel (03/05/2018 10:31 AM FINANCIAL AGENT) SCRIBED Cholesterol, Total 142 0 - 200 EXTERNAL LAB SCRIBED HDL 34(A) 40 - 100 EXTERNAL LAB SCRIBED LDL 76 0 - 130 EXTERNAL LAB SCRIBED Triglycerides 235(A) 0 - 150 EXTERNAL LAB Blood specimen (specimen) Historical Provider LAB BLOOD ORDERABLES Edit ed Result - Final EXTERNAL LAB from Last 3 Months or Most Recently Relevant to Health Maintenance Insurance [facility] MEDICARE ADVANTAGE [facility] MEDICARE ADVANTAGE Care Teams Technical Program Manager Relationship Specialty Start Date End Date Matthias Horta MD PCP - General Family Practice 05/08/23
--- OUTSIDE RECORDS SUMMARY | 2024-07-07 09:59 | XMS_ITS | Clinical Summary ---
Author Organization [facility] Address [address] [place] [phone] Care Team Providers Care Commercial Analyst Name Role Phone Matthias Horta MD Primary Care Provider [phone] Allergies Active Allergy Reactions Criticality Noted Date [...] Thyroid lump 10/14/2014 Overview (06/07/2016): Thyroid mass Encounters Date Type Department Care Team Description 05/26/2024 7:30 AM CDT Ancillary Procedure [facility] Cardiology [address] [place] [phone] Cardiac pacemaker in situ (Primary Dx); Sick sinus syndrome (HCC); Sinus bradycardia from Last 3 Months Immunizations Immunization Administration Dates Next Due Influenza, Trivalent, IM (MDV) 12/23/2013 Pneumococcal, Unspecified 12/01/2012 Surgical History Surgery Date Site/Laterality Comments IR FINE NEEDLE ASPIRATION W IMAGE GUIDANCE 06/15/2014 N/A CATARACT EXTRACTION Bilateral Medical History Medical History Date Comments Hx Other Medical glaucoma; Comme nts: EMB 07/07/2014 - Type 2 diabetes mellitus (HCC) D iabetes type 2; Comments: EMB 07/07/2014 - Hx Other Medical 1970 Bartholian cyst ; Comments: EMB 07/07/2014 - Hypertension Thyroid disease Acid indigestion Depression Macular degeneration Glaucoma Sleep apnea Pulmonary emboli (HCC) 1968 Family History Medical History Relation Name Comments Unexplained Brother 1 Lung cancer Brother 2 Cancer, lung; C ause of : Cancer, lung Leukemia Father Uterine cancer Mother Lung cancer Sister Relation Name Status Comments Brother 1 (Age 67) Brother 2 (Age 68) Father (Age 70) Mother (Age 82) Sister Alive Social History Tobacco Use Types Packs/Day Years Used Date Smoking Tobacco: Former Cigarettes 3 24 0 04/10/1964 - 04/10/1988 Smokeless Tobacco: Never Tobacco Cessation:Counseling Given: Not Answered Alcohol Use Standard Drinks/Week Comments No 0 (1 standard drink = 0.6 oz pur e alcohol) Comments Unknown Sex and Gender Information Value Date Recorded Sex Assigned at Not on file Legal Sex Female 12:07 PM EXTRACTION OPERATOR Gender Identity Female 11/19/2019 2:05 PM CDT Sexual Orientation Not on file Obstetrics History Last Filed Vital Signs Vital Sign Reading [...] 07/04/2023 10:09 AM CDT Plan of Treatment Health Maintenance Due Date Last Done Comments Albumin Creatinine Ratio, Urine 1940 Depression Screening 1940 Hemoglobin A1C 1940 Osteoporosis Screening-Bone Density Scan 1940 eGFR 1940 Dilated Eye Exam 1940 Foot Exam 1940 Hepatitis B Screening 07/29/1957 Well Visit 65+ 07/29/2004 Zoster Vaccine (2 of 3) 02/03/2013 12/09/2012 Pneumococcal vaccine 65+ (2 of 2 - PPSV23) 05/09/2018 03/14/2018, 12/01/2012 Lipid Panel 03/05/2019 03/05/2018 Fall Risk Assessment 08/04/2020 08/05/2019 Influenza Vaccine (Season Ended) 2024 12/03/2018, 12/09/2017, 12/09/2016, Additional history exists DTaP/Tdap/Td Vaccine (2 - Td or Tdap) 03/31/2028 03/31/2018 Procedures Procedure Name Priority Date/Time Associated Diagnosis Comments DEVICE CHECK - REMOTE Routine 05/27/2024 8:31 AM CDT Sick sinus syndrome (HCC) Sinus bradycardia LIPID PANEL Routine 03/05/2018 10:31 AM EXTRACTION OPERATOR from Last 3 Months or Most Recently Relevant to Health Maintenance Results * DEVICE CHECK - REMOTE (05/27/2024 8:31 AM CDT) Anatomical Region Laterality Modality Other Narrative 05/27/2024 10:10 AM CDT Medtronic Raine Dual Pacemaker. Dx; Sinus Node Dysfunction, Bradycardia. DOI 10/28/2019-[facility]. Carelink remote monitoring. Routine AAIR <> DDDR Pacemaker Remote. Transmission attached. Battery status: 2.98 V, 8.3 years remaining battery life to DESTINY. Stable lead impedances, pacing and sensing thresholds. Presenting rhythm: AP/VS AP-98.7%, MEDICAL TECH-< 0.1% No AT/AF episodes noted. No Ventricular high rate episodes detected. Medications: ASA 81 mg, Diovan HCT 320-12.5 mg See scanned report. Office pacemaker follow up: 08/26/24 [facility] remote f/u 6 months. Maxim Pedraza, RN Preet Barnes MD [facility] Final Result * (ABNORMAL) Lipid panel (03/05/2018 10:31 AM EXTRACTION OPERATOR) SCRIBED Cholesterol, Total 142 0 - 200 EXTERNAL LAB SCRIBED HDL 34(A) 40 - 100 EXTERNAL LAB SCRIBED LDL 76 0 - 130 EXTERNAL LAB SCRIBED Triglycerides 235(A) 0 - 150 EXTERNAL LAB Blood specimen (specimen) Historical Provider LAB BLOOD ORDERABLES Edit ed Result - Final EXTERNAL LAB from Last 3 Months or Most Recently Relevant to Health Maintenance Insurance [facility] [address] [employer] MEDICARE ADVANTAGE Care Teams Commercial Analyst Relationship Specialty Start Date End Date Matthias Horta MD PCP - General Family Practice 05/08/23
[2024-07-07 10:05] LABS: Blood Urine Negative (Negative); Nitrate Urine Negative (Negative)
[2024-07-07 10:06] LABS: Add Urine Microscopic? NO; Bilirubin Urine Negative (Negative); Leukocyte Esterase Ur Negative LEU/UL (Negative)
[2024-07-07 10:08] LABS: Hemoglobin A1C 5.4 % (<5.7); Iron 157 ug/dL (37-170)
[2024-07-07 10:11] LABS: Alanine Aminotransferase 22 U/L (6-35); Albumin Level 4.1 g/dL (3.5-5.1); Alkaline Phosphatase 78 U/L (38-126); Anion Gap 7 mmol/L (4-12); Aspartate Amino Transferase 34 U/L (14-36); Blood Urea Nitrogen 13 mg/dL (7-17); Calcium 9.6 mg/dL (8.4-10.2); Carbon Dioxide 28 mmol/L (22-30); Chloride 104 mmol/L (98-107); Cholesterol 183 mg/dL (0-200); Estimated Glomerular Filt Rate > 60; Glucose 162 mg/dL (65-110); HDL Direct 57 mg/dL; Potassium 4.3 mmol/L (3.4-5.0); Sodium 139 mmol/L (137-145); Triglycerides 153 mg/dL (<150)
[2024-07-07 10:22] LABS: LDL Cholesterol Direct 85 mg/dL
[2024-07-07 10:25] LABS: Percent Iron Saturation 51 % (20-50)
[2024-07-07 10:28] LABS: Creatinine Urine 132.7 mg/dL
[2024-07-07 10:32] LABS: Microalbumin Urine Random 30.5 mg/L (0-16.7)
[2024-07-07 11:18] LABS: Folic Acid > 20.0 ng/mL (2.76->20)
[2024-07-07 11:54] LABS: Vitamin D 25 Hydroxy 71.9 ng/mL
== END 2024-07-07 09:29 | disposition home or self-care (01) ==
PROVIDERS: PCP Nurse Practitioner Family; Visit Provider Nurse Practitioner Family
DX: R35.0 Frequency of micturition (principal); R42 Dizziness and giddiness; E55.9 Vitamin D deficiency, unspecified; I10 Essential (primary) hypertension; K21.9 Gastro-esophageal reflux disease without esophagitis; E78.2 Mixed hyperlipidemia; I49.5 Sick sinus syndrome; E04.1 Nontoxic single thyroid nodule; E11.9 Type 2 diabetes mellitus without complications; R79.89 Other specified abnormal findings of blood chemistry; R92.8 Other abnormal and inconclusive findings on diagnostic imaging of breast; D64.9 Anemia, unspecified; I50.32 Chronic diastolic (congestive) heart failure
CPT/HCPCS: 36415; 80053; 80061; 81003; 82043; 82306; 82607; 82746; 83036; 83540; 83550; 85025; 87086

== ENCOUNTER 2024-10-26 10:00 | Outpatient (CLI) | payer MEDICARE, SELFPAY ==
[2024-10-26 10:44] LABS: Hemoglobin A1C 5.2 % (<5.7)
[2024-10-26 10:52] LABS: Alanine Aminotransferase 23 U/L (6-35); Albumin Level 3.9 g/dL (3.5-5.1); Alkaline Phosphatase 71 U/L (38-126); Anion Gap 7 mmol/L (4-12); Aspartate Amino Transferase 41 U/L (14-36); Bilirubin,Total 0.9 mg/dL (0.2-1.3); Blood Urea Nitrogen 9 mg/dL (7-17); Calcium 9.5 mg/dL (8.4-10.2); Carbon Dioxide 28 mmol/L (22-30); Chloride 103 mmol/L (98-107); Estimated Glomerular Filt Rate > 60; Glucose 171 mg/dL (65-110); Potassium 3.6 mmol/L (3.4-5.0); Sodium 138 mmol/L (137-145); Total Protein 7.3 g/dL (6.3-8.2)
--- OUTSIDE RECORDS SUMMARY | 2024-10-26 10:54 | XMS_ITS | Patient Health Record ---
Author Organization [facility] Address [address] [place], [place] [id number] Support Name Relationship Address Phone BAKARI DCAH Guarantor Unknown [phone] Reason For Referral No Information Medications Medication SIG (Take, Route, Frequency, Duration) Notes Start Date End Date Status methylPREDNISolone 4 MG Oral Tablet ORAL methylprednisolone 4 MG Oral TabletOriginal Medicationmethylprednisolone 4 MG Oral Tablet *Reorder from [facility] for eRx and Interaction Alerts* Active citalopram 20 MG Oral Tablet ORAL citalopram 20 MG Oral TabletOriginal Medicationcitalopram 20 MG Oral Tablet *Reorder from [facility] for eRx and Interaction Alerts* Active hydrochlorothiazide 12.5 MG / losartan potassium 100 MG Oral Tablet ORAL hydrochlorothiazide 12.5 MG / losartan potassium 100 MG Oral TabletOriginal Medicationhydrochlorothiazide 12.5 MG / losartan potassium 100 MG Oral Tablet *Reorder from [facility] for eRx and Interaction Alerts* 012 Active Plan Of Treatment No Information Insurance Providers Payer Name Payer Address Payer Phone Subscriber Number Group Number Insured Name Patient Relationship to Insured Coverage Start Date Coverage End Date Medicare Part B [facility] [place] [address] [place] [phone] [id number] ANGE DC Self - patient is the insured [employer] [address] [place] [id number] ANGE DC Self - patient is the insured
--- OUTSIDE RECORDS SUMMARY | 2024-10-26 10:54 | XMS_ITS | Clinical Summary ---
Author Organization [facility] Address [address] [place] [phone] Care Team Providers Care Semiconductor Processing Technician Name Role Phone Matthias Horta MD Primary Care Provider [phone] Allergies Active Allergy Reactions Criticality Noted Date [...] C/E/Zn/coppr/shiloh tein/zeaxan (PRESERVISION AREDS-2 ORAL) 5 Active Rybelsus 7 mg tablet Take 1 tablet (7 mg total) by mouth daily 3 Active Janumet XR 100-1,000 mg tablet, ER multiphase 24 hr Take 1 tablet by mouth daily 3 Active timolol (TIMOPTIC) 0.5 % ophthalmic solution 3 Active Mounjaro 5 mg/0.5 mL pen injector ADMINISTER 5 MG UNDER THE SKIN WEEKLY 4 Active Active Problems Problem Noted Date Diagnosed Date Nonrheumatic mitral valve regurgitation 08/27/19 25 Severe obesity 08/26/2024 Class 2 severe obesity with serious comorbidity [...] Implanted Loop Recorder. Dx; Dizziness, Palpitations, Sinus Javire/Arrhythmia. DOI 04/24/2019-[facility]. Carelink remote monitoring. 10/28/2019-ILR explanted. [...] Encounters Date Type Department Care Team Description 10/26/2024 11:15 AM CDT Ancillary Procedure [facility] [address] [place] [address] [place] [phone] Cardiac pacemaker in situ; Hypertension associated with diabetes (HCC); Nonrheumatic mitral valve regurgitation 08/26/2024 9:30 AM CDT Office Visit [facility] [address] [place] [address] [place] [phone] Preet Barnes MD Cardiac pacemaker in situ (Primary Dx); Hypertension associated with diabetes (HCC); Obstructive sleep apnea syndrome; Hypothyroidism, unspecified type; Nonrheumatic mitral valve regurgitation; Severe obesity (HCC) 08/26/2024 9:00 AM CDT Ancillary Procedure [facility] [address] [place] [address] [place] [phone] Cardiac pacemaker in situ (Primary Dx); Sick sinus syndrome (HCC); Sinus bradycardia 08/25/2024 Telephone [facility] [address] [place] [address] [place] [phone] Preet Barnes MD 08/25/2024 Orders Only [facility] [address] [place] [address] [place] [phone] Preet Barnes MD Cardiac pacemaker in situ (Primary Dx); Sick [...] EMB 07/07/2014 - Type 2 diabetes mellitus Diabete s type 2; Comments: EMB 07/07/2014 - Hx Other Medical 1970 Bartholian cyst ; Comments: EMB 07/07/2014 - Hypertension Thyroid disease Acid indigestion Depression Macular degeneration Glaucoma Sleep apnea Pulmonary emboli (HCC) 1968 GERD (gastroesophageal reflu x disease) I don't know. Maybe 2009? Family History Medical History Relation Name Comments Cancer Brother 1 Emmanuel Mott Unexplained Brother 1 Emmanuel Mott Alcohol abuse Brother 2 Emmanuel Menjivar, Nikolai Lung cancer Brother 2 Emmanuel Menjivar, Nikolai Cancer, shil[place] deutsch; Cause of : Cancer, lung Depression Brother 3 nikolai Mott Cancer Father Sammy Mott Leukemia Father Sammy Mott Obesity Maternal Grandfather olivia Brown [place] Obesity Maternal Grandmother Chely Rodriguez [place] Cancer Mother Radha Ponce Depression Mother Radha Ponce Uterine cancer Mother Radha Ponce Hypertension Paternal Grandmother Tina Mott Obesity Paternal Grandmother Tina Mott Cancer Sister Tiara Drakeb Depression Sister Tiara Little Lung cancer Sister Tiara Drakeb Relation Name Status Comments Brother 1 Emmanuel Mott (Age 67) Brother 2 Tiara EmmanuelNikolai (Age 68) Brother 3 nikolai Mott Alive Father Sammy Mott (Age 70) Maternal Grandfather olivia Brown [place] Alive Maternal Grandmother Chely Rodriguez [place] Alive Mother Radha Ponce (Age 82) Paternal Grandmother Tina Mott Alive Sister Tiara Little Alive Social History Tobacco Use Types Packs/Day [...] on file Legal Sex Female 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 PLANNER Gender Identity Female 11/19/2019 2:05 PM CDT Sexual Orientation Not on file Obstetrics History Last Filed Vital Signs Vital Sign Reading Time Taken Comments Blood Pressure 108/66 08/26/2024 9:48 AM CDT Pulse 70 08/26/2024 9:48 AM CDT Temperature - - Respiratory Rate 16 12/09/2020 9:35 AM CDT Oxygen Saturation 95% 08/26/2024 9:48 AM CDT Inhaled Oxygen Concentration - - Weight 89.8 kg (198 lb) 08/26/2024 9:48 AM CDT Height 160 cm (5' 3) 08/26/2024 9:48 AM CDT Body Mass Index 35.07 08/26/2024 9:48 AM CDT Plan of Treatment Upcoming Encounters Date Type Department Care Team (Latest Contact Info) Description 10/26/2024 11:15 AM CDT Ancillary Procedure [facility] [address] [place] [phone] Cardiac pacemaker in situ; Hypertension associated with diabetes (HCC); Nonrheumatic mitral valve regurgitation Health Maintenance Due Date Last Done Comments Albumin Creatinine Ratio, Urine 1940 Depression Screening 1940 Hemoglobin A1C 1939 Osteoporosis Screening-Bone Density Scan 1939 eGFR 1940 Dilated Eye Exam 1939 Foot Exam 1939 Hepatitis B Screening 07[birth year]29/1958 Well Visit 65+ 07/29/2004 Zoster Vaccine (2 of 3) 02/03/2013 12/09/2012 Pneumococcal vaccine 65+ (2 of 2 - PPSV23, PCV20, or PCV21) 05/09/2018 03/14/2018, 12/01/2012 Lipid Panel 03/05/2019 03/05/2018 Fall Risk Assessment 08/04/2020 08/05/2019 Influenza Vaccine (#1) 2024 3, 11/18/2019, 12/03/2018, Additional history exists DTaP/Tdap/Td Vaccine (2 - Td or Tdap) 03/31/2028 03/31/2018 Procedures Procedure Name Priority Date/Time Associated Diagnosis Comments DEVICE CHECK - IN OFFICE Routine 08/26/2024 9:05 AM CDT Sick sinus syndrome (HCC) Sinus bradycardia LIPID PANEL Routine 03/05/2018 10:31 AM PROGRAM PLANNER from Last 3 Months or Most Recently Relevant to Health Maintenance Results * DEVICE CHECK - IN OFFICE (08/26/2024 9:05 AM CDT) Anatomical Region Laterality Modality Other Narrative 08/26/2024 4:57 PM CDT Medtronic Dual Pacemaker. Dx; Sinus Node Dysfunction, Bradycardia. DOI 10/28/2019-[facility]. Carelink remote monitoring. Supervising MD: Dr Barnes. Left pectoral incision well healed without signs of infection noted. Office pacemaker evaluation demonstrated appropriate device function. Battery function-2.98V, 7.9 years remaining battery life to DESTINY. Presenting rhythm-APVS. Underlying rhythm-SB 30 bpm. Appropriate lead measurements noted. AP-97.9%, DELIVERY REPRESENTATIVE-<0.1%. No atrial arrhythmias noted. 3 ventricular high rate episodes recorded Nov & June of 2023. Noted on previous remote reports. No programming changes made to device settings. See scanned report. Office pacemaker f/u and ROV with Dr Barnes 09/29/2025. Carelink remote f/u 12/02/2024. Darya Naranjo, RN Preet Barnes MD [facility] Final Result * (ABNORMAL) Lipid panel (03/05/2018 10:31 AM PROGRAM PLANNER) SCRIBED Cholesterol, Total 142 0 - 200 EXTERNAL LAB SCRIBED HDL 34(A) 40 - 100 EXTERNAL LAB SCRIBED LDL 76 0 - 130 EXTERNAL LAB SCRIBED Triglycerides 235(A) 0 - 150 EXTERNAL LAB Blood specimen (specimen) Historical Provider LAB BLOOD ORDERABLES Edit ed Result - Final EXTERNAL LAB from Last 3 Months or Most Recently Relevant to Health Maintenance Insurance [facility] Address: [address] [place] [address] [place] [address] [facility] Address: [address] [address] [place] [address] Care Teams Semiconductor Processing Technician Relationship Specialty Start Date End Date Matthias Horta MD PCP - General Family Practice 05/08/23
--- OUTSIDE RECORDS SUMMARY | 2024-10-26 11:15 | XMS_ITS | Encounter Summary ---
Author Organization [facility] Healthcare Address [address] [place] [address] Care Team Providers Care Building Construction Inspector Name Role Phone Matthias Horta MD Primary Care Provider [phone] Reason for Visit * Cardiology (Routine) - Closed Specialty Diagnoses / Procedures Referred By Contac t Referred To Contact Diagnoses 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) Nonrheumatic mitral valve regurgitation Procedures Transthoracic Echo (TTE) Complete W Doppler/CF Prete Barnes MD [address] [place] [address] Phone: tel: fax: [facility] [address] [place] [phone] Phone: tel: fax: Referral ID Status Reason Start Date Expiration Date Visits Re quested Visits Authorized [id number] Closed 08/26/2024 09/25/2025 1 1 Encounter Details Date Type Department Care Team (Latest Contact Info) Description 10/26/2024 11:15 AM CDT Ancillary Procedure [facility] [address] [place] [phone] Cardiac pacemaker in situ; Hypertension associated with diabetes (HCC); Nonrheumatic mitral valve regurgitation Social History Tobacco Use Types Packs/Day Years Used Date Smoking Tobacco: Former Cigarettes 3 24 0 04/10/1964 - 04/10/1988 Smokeless Tobacco: Never Alcohol Use Standard Drinks/Week Comments No 0 (1 standard drink = 0.6 oz pur e alcohol) Comments Unknown Sex and Gender Information Value Date Recorded Sex Assigned at Not on file Legal Sex Female 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 LIFE 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 Gender Identity Female 11/19/2019 2:05 PM CDT Sexual Orientation Not on file documented as of this encounter Plan of Treatment Not on file documented as of this encounter Visit Diagnoses Diagnosis 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) Unspecified essential hypertension Nonrheumatic mitral valve regurgitation documented in this encounter Orders Imaging Orders Without Results Count Last Order ed Date First Ordered Date TRANSTHORACIC ECHO (TTE) COM PLETE W DOPPLER/CF 1 10/26/2024 documented in this encounter Care Teams Building Construction Inspector Relationship Specialty Start Date End Date Matthias Horta MD PCP - General Family Practice 05/08/23 documented as of this encounter
== END 2024-10-26 10:01 | disposition home or self-care (01) ==
PROVIDERS: PCP Nurse Practitioner Family; Visit Provider Nurse Practitioner Family
DX: E11.29 Type 2 diabetes mellitus with other diabetic kidney complication (principal); R80.9 Proteinuria, unspecified; I11.0 Hypertensive heart disease with heart failure
CPT/HCPCS: 36415; 80053; 83036

== ENCOUNTER 2024-12-03 15:21 | Outpatient (CLI) | payer MEDICARE, SELFPAY ==
--- NOTE | ~2024-12-03 | MM_ITS ---
EXAMINATION: MM screening [facility] BI w carolynn HISTORY: Screening TECHNIQUE: Craniocaudal and mediolateral oblique 3-D tomosynthesis images were obtained and synthetic 2-D images were generated. CAD analysis was submitted and interpreted. COMPARISON: Comparison to multiple prior studies sequentially, with oldest reviewed study dated 10/07/2018. BREAST PARENCHYMAL COMPOSITION: Not dense: There are scattered areas of fibroglandular density. FINDINGS: There is no evidence of suspicious mass, calcification, or architectural distortion to suggest malignancy in either breast. There has been no suspicious interval change. IMPRESSION: 1. No mammographic evidence of malignancy. 2. Recommend routine screening mammography in one year. BI-RADS Category 1: Negative Reviewed, dictated and finalized at location B.
--- OUTSIDE RECORDS SUMMARY | 2024-12-03 15:44 | XMS_ITS | Patient Health Record ---
Author Organization [facility] Address [address] [place], [place] [id number] Support Name Relationship Address Phone BAKARI DCAH Guarantor Unknown [phone] Reason For Referral No Information Medications Medication SIG (Take, Route, Frequency, Duration) Notes Start Date End Date Status methylPREDNISolone 4 MG Oral Tablet ORAL methylprednisolone 4 MG Oral TabletOriginal Medicationmethylprednisolone 4 MG Oral Tablet *Reorder from [employer] for eRx and Interaction Alerts* 012 Active citalopram 20 MG Oral Tablet ORAL citalopram 20 MG Oral TabletOriginal Medicationcitalopram 20 MG Oral Tablet *Reorder from [employer] for eRx and Interaction Alerts* 012 Active hydrochlorothiazide 12.5 MG / losartan potassium 100 MG Oral Tablet ORAL hydrochlorothiazide 12.5 MG / losartan potassium 100 MG Oral TabletOriginal Medicationhydrochlorothiazide 12.5 MG / losartan potassium 100 MG Oral Tablet *Reorder from [employer] for eRx and Interaction Alerts* 012 Active Plan Of Treatment No Information Insurance Providers Payer Name Payer Address Payer Phone Subscriber Number Group Number Insured Name Patient Relationship to Insured Coverage Start Date Coverage End Date Medicare Part B [facility] [address] [place] [address] [id number] ANGE DC Self - patient is the insured [place] [facility] [address] [place] [id number] ANGE DC Self - patient is the insured
--- OUTSIDE RECORDS SUMMARY | 2024-12-03 15:44 | XMS_ITS | Encounter Summary ---
Author Organization [facility] Healthcare Address [address] [place] [address] Care Team Providers Care Elevator Mechanic Name Role Phone Matthias Horta MD Primary Care Provider [phone] Encounter Details Date Type Department Care Team (Latest Contact Info) Description 10/30/2024 Results Follow-Up [facility] Cardiology [address] [place] [address] Preet Barnes MD [address] [facility] [address] [place] [address] Transthoracic Echo (TTE) Complete W Doppler/CF Social History Tobacco Use Types Packs/Day Years Used Date Smoking Tobacco: Former Cigarettes 3 24 0 04/10/1964 - 04/10/1988 Smokeless Tobacco: Never Alcohol Use Standard Drinks/Week Comments No 0 (1 standard drink = 0.6 oz pur e alcohol) Comments Unknown Sex and Gender Information Value Date Recorded Sex Assigned at Not on file Legal Sex Female 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
--- OUTSIDE RECORDS SUMMARY | 2024-12-03 15:44 | XMS_ITS | Clinical Summary ---
Author Organization [facility] Address [address] [place] [id number] Care Team Providers Care Manager [employer] Name Role Phone Matthias Horta MD Primary Care Provider [phone] Allergies Active Allergy Reactions Criticality Noted Date [...] Encounters Date Type Department Care Team Description 12/01/2024 7:30 AM CDT Ancillary Procedure [facility] [address] [facility] [address], [place] [address] Sick sinus syndrome (HCC); Sinus bradycardia 10/30/2024 Results Follow-Up [facility] [address] [facility] [address] [place] [address] Tee Stovall MD Transthoracic Echo (TTE) Complete W Doppler/CF 10/26/2024 11:15 AM CDT Ancillary Procedure [facility] [address] [place] [address] Cardiac pacemaker in situ; Hypertension associated with diabetes (HCC); Nonrheumatic mitral valve regurgitation from Last 3 Months Immunizations Immunization Administration [...] degeneration Glaucoma Sleep apnea Pulmonary emboli (HCC) 1967 GERD (gastroesophageal reflu x disease) I don't know. Maybe 2009? Family History Medical History Relation Name Comments Cancer Brother 1 Emmanuel Pantera Unexplained Brother 1 Emmanuel Mott Alcohol abuse Brother 2 Emmanuel Menjivar Charlie Lung cancer Brother 2 Emmanuel Menjivar, Nikolai Cancer, [place]; Cause of : Cancer, lung Depression Brother 3 nikolai Mott Cancer Father Sammy Mott Leukemia Father Sammy Mott Obesity Maternal Grandfather olivia Brown [place] Obesity Maternal Grandmother Chely Rodriguez [place] Cancer Mother Radha Ponce Depression Mother Radha Ponce Uterine cancer Mother Radha Rosario Hypertension Paternal Grandmother Tina Mott Obesity Paternal Grandmother Tina Mott Cancer Sister Tiara Drakeb Depression Sister Tiara Little Lung cancer Sister Tiara Little Relation Name Status Comments Brother 1 Emmanuel Mott (Age 67) Brother 2 Emmanuel Menjivar Charlie (Age 68) Brother 3 nikolai Mott Alive Father Sammy Mott (Age 70) Maternal Grandfather olivia Brown Elodia Alive Maternal Grandmother Chely Rodriguez [place] Alive Mother Radha Ponce (Age 82) Paternal [...] on file Legal Sex Female 12:07 PM AIRLINE CAPTAIN Gender Identity Female 11/19/2019 2:05 PM CDT [...] 08/26/2024 9:48 AM CDT Plan of Treatment Health Maintenance [...] Assessment 08/04/2020 08/05/2019 Influenza Vaccine (#1) 2024 9, 12/09/2017, 12/09/2016, Additional history exists DTaP/Tdap/Td Vaccine (2 - Td or Tdap) 03/31/2028 03/31/2018 Procedures Procedure Name Priority Date/Time Associated Diagnosis Comments TRANSTHORACIC ECHO (TTE) COMPLETE W DOPPLER/CF WO CONTRAST Routine 10/26/2024 12:29 PM CDT 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) Nonrheumatic mitral valve regurgitation LIPID PANEL Routine 03/05/2018 10:31 AM AIRLINE CAPTAIN from Last 3 Months or Most Recently Relevant to Health Maintenance Results * TRANSTHORACIC ECHO (TTE) COMPLETE W DOPPLER/CF WO CONTRAST (10/26/2024 12:29 PM CDT) Estimated EF 65-70 % CONS SCIMAGE EF Mod BP 67 % CONS SCIMAGE Anatomical Region Laterality Modality Ultrasound 10/26/2024 11:2 2 AM CDT Narrative 10/27/2024 7:48 AM CDT [facility] [address], [place] [address] [address] [facility] [address], [place] [address] P:[phone] P:[phone] Echocardiographic Report Patient Name: ANGE DC A : 1940 Study Date: 10/26/2024 11:22:40 AM Sex: F 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 With Strain Analysis. 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 MEASUREMENTS: 2D/MM Value Range Doppler Value Range EF Mod BP 67 % [ 54 - 74 ] KATERYNA Vmax 1.65 cm2 [ 2.00 - 4.00 ] Estimated EF 65-70 % AV Mean PG 8 mmHg LV GLS -15.04 % AV Peak Fabián 1.98 m/s [ 1.00 - 1.70 ] LVIDd 2D 4.39 cm [ 3.80 - 5.20 ] AV Peak PG 16 mmHg LVIDs 2D 2.72 cm [ 2.20 - 3.50 ] AV VTI 39.38 cm LVPWd 2D 1.01 cm [ 0.60 - 0.90 ] LVOT Diam 2.08 cm [ 1.70 - 2.10 ] IVSd 2D 1.13 cm [ 0.60 - 0.90 ] LVOT Peak Fabián 0.96 m/s [ 0.70 - 1.10 ] AoR Diam 2D 3.18 cm [ 2.70 - 3.70 ] LVOT VTI 19.62 cm LA Volume 31.90 ml [ 22.00 - 52.00 ] MV E Peak Fabián 0.53 m/s [ 0.60 - 1.30 ] LA Volume Index 16 cc/m2 [ 16 - 28 ] MV A Peak Fabián 0.93 m/s [ 1.00 - 1.20 ] RA Volume 35.46 ml MV Decel Time 272 msec [ 104 - 258 ] PV Peak Fabián 0.77 m/s [ 0.40 - 0.80 ] TR Peak Fabián 2.27 m/s [ 1.00 - 2.80 ] TR Peak PG 21 mmHg RV S` 22.25 mmHg Lateral E` 0.06 m/s [ 0.10 - 0.15 ] Septal E` 0.08 m/s [ 0.08 - 0.15 ] E` 0.07 m/s E/E` 8 Tapse 2.50 cm [ 1.71 - 5.00 ] 2D/MM Value Range Doppler Value Range - FINDINGS: Interpretation Site: Exam was interpreted at [facility]. Left Ventricle: Normal left ventricular systolic function. No focal wall motion abnormalities. Normal left ventricular size. Mild concentric left ventricular hypertrophy. Impaired diastolic relaxation Grade I. Ejection fraction is measured at 67 %. Ejection Fraction is visually estimated to be 65-70 %. Global Longitudinal Strain is -15 %. GLS is abnormal. Right Ventricle: Moderate enlargement of right ventricle. Mild right ventricular hypokinesis. Linear artifact in right ventricle suggestive of catheter(s), pacemaker lead(s), or ICD lead(s). Left Atrium: There is mild enlargement of left atrium. Right Atrium: There is moderate enlargement of right atrium. Atrial Septum: Normal atrial septum. Mitral Valve: Mild mitral annular calcification. Mild mitral valve regurgitation. There is no hemodynamically significant mitral stenosis by Doppler. Aortic Valve: Mild aortic stenosis. Peak Velocity of 2.00 m/s. Mean gradient of 8.0 mmHg. Valve area of 1.65 cm2. Aortic cusps appear moderately calcified. Trileaflet aortic valve. Trace to mild aortic valve regurgitation. Tricuspid Valve: Normal appearance of the tricuspid valve. Normal right ventricular systolic pressure. Estimated peak RVSP is 30-35 mmHg. Moderate tricuspid regurgitation. Pulmonic Valve: Normal appearance of the pulmonic valve. No pulmonic stenosis. Mild pulmonic regurgitation. Pericardium: Trivial pericardial effusion. Aorta: No aortic root dilation. Mild aortic root calcification. IVC: Normal size and normal respiratory collapse consistent with normal right atrial pressure (<5 mmHg). CONCLUSIONS: Normal left ventricular systolic function. No focal wall motion abnormalities. Normal left ventricular size. Mild concentric left ventricular hypertrophy. Impaired diastolic relaxation Grade I. Ejection fraction is measured at 67 %. Ejection Fraction is visually estimated to be 65-70 %. Global Longitudinal Strain is -15 %. GLS is abnormal. Moderate enlargement of right ventricle. Mild right ventricular hypokinesis. Linear artifact in right ventricle suggestive of catheter(s), pacemaker lead(s), or ICD lead(s). There is mild enlargement of left atrium. There is moderate enlargement of right atrium. Mild mitral annular calcification. Mild mitral valve regurgitation. Mild aortic stenosis. Peak Velocity of 2.00 m/s. Mean gradient of 8.0 mmHg. Valve area of 1.65 cm2. Aortic cusps appear moderately calcified. Trileaflet aortic valve. Trace to mild aortic valve regurgitation. Moderate tricuspid regurgitation. Mild pulmonic regurgitation. Normal sinus rhythm. 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 With Strain Analysis. INDICATIONS: Z95.0 Presence of cardiac pacemaker, E11.59 Type 2 diabetes mellitus withother circulatory complications, I15.2 Hypertension secondary to endocrinedisorders, and I34.0 Nonrheumatic mitral (valve) insufficiency. MEASUREMENTS: 2D/MM Value Range Doppler ValueRange EF Mod BP 67 % [ 54 - 74 ] KATERYNA Vmax 1.65cm2 [ 2.00 - 4.00 ] Estimated EF 65-70 % AV Mean PG 8mmHg LV GLS -15.04 % AV Peak Fabián 1.98m/s [ 1.00 - 1.70 ] LVIDd 2D 4.39 cm [ 3.80 - 5.20 ] AV Peak PG 16mmHg LVIDs 2D 2.72 cm [ 2.20 - 3.50 ] AV VTI 39.38cm LVPWd 2D 1.01 cm [ 0.60 - 0.90 ] LVOT Diam 2.08cm [ 1.70 - 2.10 ] IVSd 2D 1.13 cm [ 0.60 - 0.90 ] LVOT Peak Fabián 0.96m/s [ 0.70 - 1.10 ] AoR Diam 2D 3.18 cm [ 2.70 - 3.70 ] LVOT VTI 19.62cm LA Volume 31.90 ml [ 22.00 - 52.00 ] MV E Peak Fabián 0.53m/s [ 0.60 - 1.30 ] LA Volume Index 16 cc/m2 [ 16 - 28 ] MV A Peak Fabián 0.93m/s [ 1.00 - 1.20 ] RA Volume 35.46 ml MV Decel Time 272msec [ 104 - 258 ] PV Peak Fabián 0.77 m/s [ 0.40 - 0.80 ] TR Peak Fabián 2.27 m/s [ 1.00 - 2.80 ] TR Peak PG 21 mmHg RV S` 22.25 mmHg Lateral E` 0.06 m/s [ 0.10 - 0.15 ] Septal E` 0.08 m/s [ 0.08 - 0.15 ] E` 0.07 m/s E/E` 8 Tapse 2.50 cm [ 1.71 - 5.00 ] 2D/MM Value Range Doppler ValueRange - FINDINGS: Interpretation Site: Exam was interpreted at [facility]. Left Ventricle: Normal left ventricular systolic function. No focal wall motionabnormalities. Normal left ventricular size. Mild concentric left ventricular hypertrophy.Impaired diastolic relaxation Grade I. Ejection fraction is measured at 67 %. EjectionFraction is visually estimated to be 65-70 %. Global Longitudinal Strain is -15 %. GLS isabnormal. Right Ventricle: Moderate enlargement of right ventricle. Mild right ventricularhypokinesis. Linear artifact in right ventricle suggestive of catheter(s), pacemaker lead(s),or ICD lead(s). Left Atrium: There is mild enlargement of left atrium. Right Atrium: There is moderate enlargement of right atrium. Atrial Septum: Normal atrial septum. Mitral Valve: Mild mitral annular calcification. Mild mitral valve regurgitation. Thereis no hemodynamically significant mitral stenosis by Doppler. Aortic Valve: Mild aortic stenosis. Peak Velocity of 2.00 m/s. Mean gradient of 8.0mmHg. Valve area of 1.65 cm2. Aortic cusps appear moderately calcified. Trileaflet aorticvalve. Trace to mild aortic valve regurgitation. Tricuspid Valve: Normal appearance of the tricuspid valve. Normal right ventricularsystolic pressure. Estimated peak RVSP is 30-35 mmHg. Moderate tricuspid regurgitation. Pulmonic Valve: Normal appearance of the pulmonic valve. No pulmonic stenosis. Mildpulmonic regurgitation. Pericardium: Trivial pericardial effusion. Aorta: No aortic root dilation. Mild aortic root calcification. IVC: Normal size and normal respiratory collapse consistent with normal rightatrial pressure (<5 mmHg). CONCLUSIONS: Normal left ventricular systolic function. No focal wall motionabnormalities. Normal left ventricular size. Mild concentric left ventricular hypertrophy.Impaired diastolic relaxation Grade I. Ejection fraction is measured at 67 %. EjectionFraction is visually estimated to be 65-70 %. Global Longitudinal Strain is -15 %. GLS isabnormal. Moderate enlargement of right ventricle. Mild right ventricularhypokinesis. Linear artifact in right ventricle suggestive of catheter(s), pacemaker lead(s),or ICD lead(s). There is mild enlargement of left atrium. There is moderate enlargement of right atrium. Mild mitral annular calcification. Mild mitral valve regurgitation. Mild aortic stenosis. Peak Velocity of 2.00 m/s. Mean gradient of 8.0mmHg. Valve area of 1.65 cm2. Aortic cusps appear moderately calcified. Trileaflet aorticvalve. Trace to mild aortic valve regurgitation. Moderate tricuspid regurgitation. Mild pulmonic regurgitation. Normal sinus rhythm. Electronically Signed By: Tee Stovall MD 10/27/2024 7:47:29 AM CDT Tee Stovall MD CV ECHO PROCEDURES Final Result * (ABNORMAL) Lipid panel (03/05/2018 10:31 AM AIRLINE CAPTAIN) SCRIBED Cholesterol, Total 142 0 - 200 EXTERNAL LAB SCRIBED HDL 34(A) 40 - 100 EXTERNAL LAB SCRIBED LDL 76 0 - 130 EXTERNAL LAB SCRIBED Triglycerides 235(A) 0 - 150 EXTERNAL LAB Blood specimen (specimen) Historical Provider LAB BLOOD ORDERABLES Edit ed Result - Final EXTERNAL LAB from Last 3 Months or Most Recently Relevant to Health [place] [address] [employer] MEDICARE ADVANTAGE MEDICAL [facility] MED[facility] Address: [facility] [address] [place] [address] [employer] MEDICARE ADVANTAGE [facility] MEDICARE Address: [address] [address] Care Teams 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
== END 2024-12-03 15:22 | disposition home or self-care (01) ==
LOC: ANHFOHIMG 15:42
PROVIDERS: PCP Nurse Practitioner Family; Visit Provider Nurse Practitioner Family
DX: Z12.31 Encounter for screening mammogram for malignant neoplasm of breast (principal)
CPT/HCPCS: 77063; 77067